=== PATIENT | female | born 1960 | race Caucasian/White ===

== ENCOUNTER 2017-01-11 16:08 | Emergency (ER) | payer BC, OTHER ==
[2017-01-11] MEDS ORDERED: Hydromorphone 1 mg/ml Ampule IV ONE (16:27)
[2017-01-11] MEDS ORDERED: Phenergan 25 MG INJ IV ONE (16:27)
[2017-01-11] MEDS ORDERED: Pepcid 20 MG VIAL IV ONE ×2 (16:27→16:35)
[2017-01-11] MEDS ORDERED: Sodium Chloride 0.9% 1000 ML 1,000 ML IV SCH (16:30)
[2017-01-11] MEDS ORDERED: Phenergan 25 MG INJ ONE (16:35)
[2017-01-11] MEDS ORDERED: Hydromorphone 1 mg/ml Ampule ONE (16:35)
[2017-01-11] MEDS ORDERED: Sodium Chloride 0.9% 1000 ML 1,000 ML ONE ×3 (16:35→17:41)
--- NOTE | 2017-01-11 16:37 | ERPHSYRPT ---
- History of Present Illness Time Seen by Provider: 01/11/17 16:11 Historian: patient Exam Limitations: no limitations Patient Subjective Stated Complaint: PT REPORTS DIARRHEA ET NAUSEA FOR DEISY 2 WKS -DENIES OBVIOUS BLOOD-REPORTS ABD PAIN-STATES THAT SHE FEELS WEAK ET DIZZY Triage Nursing Assessment: PT PINK WARM ET SEB-OQIMO-SMEF NONLABORED-ABD SOFT ET NONTENDER-BOWEL SOUNDS HYPERACTIVE Physician History: hx of diverticulitis and chrons; recent increase in abdominal pain wiht N&V &D; no blood; symptoms increased; 10# wt loss past week; cant eat;no travel; no bad food; no fever;no known exposures Timing/Duration: today (worse), week(s) (increased symptoms) Activities at Onset: none Quality: aching, cramping Abdominal Pain Onset Location: generalized abdomen Pain Radiation: no radiation Severity of Pain-Max: severe Severity of Pain-Current: moderate Modifying Factors: Improves With: eating, vomiting Associated Symptoms: diarrhea, loss of appetite, nausea, vomiting, other (wt loss) Previous symptoms: same symptoms as today, no recent treatment Allergies/Adverse Reactions: codeine Allergy (Intermediate, Verified 01/11/17 16:18) morphine Allergy (Intermediate, Verified 01/11/17 16:18) povidone-iodine [From Betadine] Allergy (Intermediate, Verified 01/11/17 16:18) soap [From Betadine] Allergy (Intermediate, Verified 01/11/17 16:18) adhesive Adverse Reaction (Verified 01/11/17 16:18) Home Medications: Prednisone 20 mg [Deltasone 20 mg] 20 mg PO DAILY 08/07/14 [History] Tramadol HCl 50 mg [Ultram 50 mg] 50 mg PO Q6HPRN PRN 08/07/14 [History] Estrogen,Liss/Me-Testosterone [Estratest Tablet] 1 mg PO DAILY 01/10/15 [ History] Fentanyl 25Mcg Patch [Duragesic 25MCG Patch] 25 mcg TD UD 09/22/15 [ History] Leflunomide [Arava] 50 mg PO DAILY 09/22/15 [History] Lisinopril 5 mg [Zestril 5 MG] 5 mg PO DAILY 09/22/15 [History] Metoprolol Succinate 25 mg Xl* [Toprol-Xl 25MG Tablets] 25 mg PO BID [History] Gabapentin [Neurontin] 300 mg PO UD 01/11/17 [History] Hx Tetanus, Diphtheria Vaccination/Date Given: No Hx Influenza Vaccination/Date Given: No Hx Pneumococcal Vaccination/Date Given: Yes Immunizations Up to Date: Yes - Review of Systems Constitutional: Weight Loss, No Fever, No Night Sweats Eyes: No Symptoms Ears, Nose, & Throat: No Symptoms Respiratory: No Cough, No Dyspnea, No Wheezing Cardiac: Edema, No Chest Pain, No Palpitations, No Syncope Abdominal/Gastrointestinal: Abdominal Pain, Nausea, Vomiting, Diarrhea, No Constipation, No Hematemesis, No Melena Genitourinary Symptoms: No Symptoms Musculoskeletal: Arthralgias, Myalgias Skin: No Symptoms Neurological: No Symptoms Psychological: No Symptoms Endocrine: No Symptoms Hematologic/Lymphatic: No Symptoms Immunological/Allergic: Food Allergy, Mold Allergy, Pollen Allergy - Past Medical History Pertinent Past Medical History: Yes Neurological History: Stroke ENT History: Cataracts Cardiac History: Congestive Heart Failure, Coronary Artery Disease, Other Respiratory History: Asthma, COPD, Pneumonia Endocrine Medical History: Diabetes Type I Musculoskeletal History: Fibromyalgia, Other GI Medical History: Crohns Disease, Diverticulosis History: No Pertinent History Psycho-Social History: No Pertinent History Female Reproductive Disorders: No Pertinent History Other Medical History: tachicardia, mixed connective tissue disease. - Past Surgical History Past Surgical History: Yes Neuro Surgical History: No Pertinent History Cardiac: Cardiac Catheterization Respiratory: No Pertinent History Gastrointestinal: Appendectomy, Cholecystectomy, Other Genitourinary: No Pertinent History Musculoskeletal: Other Female Surgical History: Hysterectomy, Lumpectomy Other Surgical History: bev fundoplasty, knee scopes. rods in spine. SI fused. left breast lumpectomy - Social History Smoking Status: Never smoker Exposure to second hand smoke: No Alcohol Use: Socially Drug Use: none Patient Lives Alone: No Significant Family History: no pertinent family hx - Female History Hx Now: No - Nursing Vital Signs Nursing Vital Signs: Initial Vital Signs Temperature 98.3 F 01/11/17 16:13 Pulse Rate 114 H 01/11/17 16:13 Respiratory Rate 20 01/11/17 16:13 Blood Pressure 164/110 01/11/17 16:13 O2 Sat by Pulse Oximetry 95 01/11/17 16:13 Pain Scale Pain Intensity 6 - Physical Exam General Appearance: moderate distress, alert, obese Eye Exam: PERRL/EOMI, eyes nml inspection, No photophobia Ears, Nose, Throat Exam: normal ENT inspection, TMs normal, pharynx normal, moist mucous membranes Neck Exam: normal inspection, non-tender, supple, full range of motion, No meningismus, No JVD Respiratory Exam: normal breath sounds, lungs clear, airway intact, No chest tenderness, No respiratory distress, No rhonchi, No wheezing Cardiovascular Exam: regular rate/rhythm, normal heart sounds, normal peripheral pulses, tachycardia, No murmur Gastrointestinal/Abdomen Exam: soft, tenderness (mild diffuse), distention ( softly), No normal bowel sounds (slightlyhyperactive), No mass, No guarding, No pulsatile mass, No rebound, No organomegaly Pelvic Exam: deferred Rectal Exam: deferred Back Exam: normal inspection, normal range of motion, No CVA tenderness, No vertebral tenderness, No rash Extremity Exam: normal inspection (except swelling right lower - chronic), normal range of motion, No calf tenderness, No kori's sign Neurologic Exam: alert, oriented x 3, cooperative, implementation engineer II-XII nml as tested, normal mood/affect, nml cerebellar function, nml station & gait, sensation nml Skin Exam: normal color, warm, dry, No rash, No petechiae SpO2 Interpretation: normal SpO2: 95 Oxygen Delivery: Room Air - Course Nursing assessment & vital signs reviewed: Yes - CT Exams Abdomen/Pelvis CT Interpretation: Tele-radiologist Report, Other (diverticulosis and surgical hardware; no obstruction ) Ordered Tests: Active Orders 24 hr Category Date Time Status IV Insertion STAT Care 01/11/17 16:27 Active NPO (ED) STAT Care 01/11/17 16:27 Active Re-Check Vital Signs STAT Care 01/11/17 16:27 Active ABDOMEN AND PELVIS W CONTRAST [CT] Stat Exams 01/11/17 16:27 Taken AMYLASE Stat Lab 01/11/17 16:41 Completed CBC W DIFF Stat Lab 01/11/17 16:41 Completed CMP Stat Lab 01/11/17 16:41 Completed LIPASE Stat Lab 01/11/17 16:41 Completed Lactic Acid Stat Lab 01/11/17 16:27 Results Manual Differential NC Stat Lab 01/11/17 16:41 Completed PROTIME WITH INR Stat Lab 01/11/17 17:31 Completed UA W/RFX UR CULTURE Stat Lab 01/11/17 16:27 Ordered Medication Summary Generic Name Dose Route Start Last Admin Trade Name Elizabeth PRN Reason Stop Dose Admin Sodium Chloride 1,000 mls @ 100 mls/hr 01/11/17 16:30 01/11/17 16:47 Sodium Chloride 0.9% 1000 Ml IV 02/10/17 16:29 100 mls/hr .Q10H ZEENAT Administration Lactated Ringer's 1,000 mls @ 999 mls/hr 01/11/17 17:28 01/11/17 17:42 Lactated Ringers IV 01/11/17 18:28 999 mls/hr .Q1H1M ONE Administration Metronidazole 500 mg in 100 mls @ 100 mls/hr 01/11/17 18:00 01/11/17 18:11 Flagyl 500 Mg Ivpb IV 01/11/17 18:59 100 mls/hr STAT ONE Administration Discontinued Medications Generic Name Dose Route Start Last Admin Trade Name Elizabeth PRN Reason Stop Dose Admin Famotidine 20 mg 01/11/17 16:27 01/11/17 16:46 Pepcid 20 Mg Vial IV 01/11/17 16:28 20 mg STAT ONE Administration Famotidine Confirm 01/11/17 16:35 Pepcid 20 Mg Vial Administered 01/11/17 16:36 Dose 20 mg IV .STK-MED ONE Hydromorphone HCl 1 mg 01/11/17 16:27 01/11/17 16:46 Hydromorphone 1 Mg/Ml Ampule IV 01/11/17 16:28 1 mg STAT ONE Administration Hydromorphone HCl Confirm 01/11/17 16:35 Hydromorphone 1 Mg/Ml Ampule Administered 01/11/17 16:36 Dose 1 mg .ROUTE .STK-MED ONE Sodium Chloride 1,000 mls @ 999 mls/hr 01/11/17 17:03 01/11/17 17:42 Sodium Chloride 0.9% 1000 Ml IV 01/11/17 18:03 999 mls/hr .Q1H1M STA Administration Sodium Chloride 500 mls @ 500 mls/hr 01/11/17 17:04 01/11/17 17:42 Sodium Chloride 0.9% 500 Ml IV 01/11/17 18:03 500 mls/hr .Q1H ONE Administration Lactated Ringer's Confirm 01/11/17 17:39 Lactated Ringers Administered 01/11/17 17:40 Dose 1,000 mls @ ud IV .STK-MED ONE Lactated Ringer's Confirm 01/11/17 17:41 Lactated Ringers Administered 01/11/17 17:42 Dose 1,000 mls @ ud IV .STK-MED ONE Ceftriaxone Sodium/Dextrose 1 g in 50 mls @ 100 mls/hr 01/11/17 17:51 18:11 Rocephin 1 Gm-D5w 50 Ml Bag IV 01/11/17 18:20 100 mls/hr STAT ONE Administration Ceftriaxone Sodium/Dextrose Confirm 01/11/17 17:55 Rocephin 1 Gm-D5w 50 Ml Bag Administered 01/11/17 17:56 Dose 1 g in 50 mls @ ud IV .STK-MED ONE Metronidazole Confirm 01/11/17 17:55 Flagyl 500 Mg Ivpb Administered 01/11/17 17:56 Dose 500 mg in 100 mls @ ud IV .STK-MED ONE Promethazine HCl 12.5 mg 01/11/17 16:27 01/11/17 16:47 Phenergan 25 Mg Inj IV 01/11/17 16:28 12.5 mg STAT ONE Administration Promethazine HCl Confirm 01/11/17 16:35 Phenergan 25 Mg Inj Administered 01/11/17 16:36 Dose 25 mg .ROUTE .STK-MED ONE Lab/Rad Data: Laboratory Result Diagrams 01/11/17 16:41 01/11/17 16:41 Laboratory Results 01/11/17 01/11/17 01/11/17 Range/Units 17:31 16:41 16:41 WBC 16.7 H (4.0-10.5) K/mm3 RBC 4.91 (4.1-5.4) M/mm3 Hgb 15.0 (12.0-16.0) gm/dl Hct 44.3 (35-47) % MCV 90.2 (78-100) fl MCH 30.5 (26-32) pg MCHC 33.9 (32-36) g/dl RDW 13.8 (11.5-14.0) % Plt Count 295 (150-450) K/mm3 MPV 11.7 H (6-9.5) fl INR 1.04 (0.8-3.0) Sodium 139 (136-145) mEq/L Potassium 2.5 L* (3.5-5.1) mEq/L Chloride 96 L (98-107) mEq/L Carbon Dioxide 28.0 (21-32) mEq/L Anion Gap 17.3 H (5-15) MEQ/L BUN 26 H (9-20) mg/dL Creatinine 1.47 H (0.55-1.30) mg/dl Estimated GFR 39 ML/MIN Glucose 203 H (70-110) MG/DL Lactic Acid (0.4-2.0) Calcium 9.7 (8.5-10.1) mg/dL Total Bilirubin 0.60 (0.2-1.0) mg/dL AST 21 (15-37) U/L ALT 33 (12-78) U/L Alkaline Phosphatase 95 (46-116) U/L Serum Total Protein 7.6 (6.4-8.2) gm/dL Albumin 4.4 (3.4-5.0) g/dL Amylase 52 (25-115) U/L Lipase 237 (73-393) U/L 01/11/17 Range/Units 16:27 WBC (4.0-10.5) K/mm3 RBC (4.1-5.4) M/mm3 Hgb (12.0-16.0) gm/dl Hct (35-47) % MCV (78-100) fl MCH (26-32) pg MCHC (32-36) g/dl RDW (11.5-14.0) % Plt Count (150-450) K/mm3 MPV (6-9.5) fl INR (0.8-3.0) Sodium (136-145) mEq/L Potassium (3.5-5.1) mEq/L Chloride (98-107) mEq/L Carbon Dioxide (21-32) mEq/L Anion Gap (5-15) MEQ/L BUN (9-20) mg/dL Creatinine (0.55-1.30) mg/dl Estimated GFR ML/MIN Glucose (70-110) MG/DL Lactic Acid 3.9 H (0.4-2.0) Calcium (8.5-10.1) mg/dL Total Bilirubin (0.2-1.0) mg/dL AST (15-37) U/L ALT (12-78) U/L Alkaline Phosphatase (46-116) U/L Serum Total Protein (6.4-8.2) gm/dL Albumin (3.4-5.0) g/dL Amylase (25-115) U/L Lipase (73-393) U/L reviewed - Progress Progress: improved, re-examined (after meds and xr; ) Progress Note: 01/11/17 16:36 IV started for hydration; meds given for N&V; labs and CT pending; will monitor and recheck 01/11/17 16:53 questioned patient about iodine allergy and states she can take contrast but cant do topical 01/11/17 17:05 lactate elevated = 3.9; will start fluid bolus. monitor and recheck 01/11/17 17:27 elevated WBC adn glu and poor renal function; low K++ 2.5elevated anion gap; will give fluids and K+ and recheck 01/11/17 17:53 Will start IV ATBS for Sepsis and continue IV bolus and recheck; CT pending results; discussed admission and transfer with the patient ; wants to go to [facility] 01/11/17 18:00 recheck; vs improving; bolusing fluids cautiously becasue of hx of cHF and ASHD in the past; tolerating fluids so far; awaiting CT result before arranging transfer 01/11/17 18:04 patient up to bathroom; INR 1.04; ptt 11.7 01/11/17 18:09 Will consult Hospitalist at [facility] xcovering admissions for Dr Mcgill for [facility]; 01/11/17 18:24 Dr Mcclain, Hospitalist at [facility] consulted and accepted the patient for transfer at 1815; patient notified; EMS contacted for transfer when bed given; will start Levoquin if time Discussed with : Other (Dr Mcclain, Hospitalist consulted and accepted patient for transfer at 1815) Counseled pt/family regarding: lab results, diagnosis, need for follow-up, rad results - Departure Time of Disposition: 18:45 Departure Disposition: Transfer (to [facility], Dr Mcclain, Hospitalist asccepting 1814) Clinical Impression: Abdominal pain, Nausea and vomiting in adult patient, Hypokalemic alkalosis, Elevated lactic acid level, Sepsis, Hyperglycemia Condition: Serious Critical Care Time: Yes Critical Care Time(excluding separately billable procedures): 30-74 minutes Referrals: PAULETTE SALAZAR [Primary Care Provider] -
[2017-01-11 16:48] LABS: Mean Cell Volume 90.2 fl (78-100); Mean Corpuscular Hemoglobin 30.5 pg (26-32); Mean Platelet Volume 11.7 fl (6-9.5); Platelet Count 295 K/mm3 (150-450); Red Blood Count 4.91 M/mm3 (4.1-5.4); Red Cell Distribution Width 13.8 % (11.5-14.0); White Blood Count 16.7 K/mm3 (4.0-10.5)
[2017-01-11 16:55] LABS: Lactic Acid 3.9 (0.4-2.0)
[2017-01-11] MEDS ORDERED: Sodium Chloride 0.9% 1000 ML 1,000 ML IV STA (17:03)
[2017-01-11] MEDS ORDERED: Sodium Chloride 0.9% 500 ML 500 ML IV ONE (17:04)
[2017-01-11 17:17] LABS: ALBUMIN 4.4 g/dL (3.4-5.0); ANION GAP 17.3 MEQ/L (5-15); BILIRUBIN,TOTAL 0.6 mg/dL (0.2-1.0); Total Protein 7.6 gm/dL (6.4-8.2)
[2017-01-11 17:24] LABS: Potassium 2.5 mEq/L (3.5-5.1)
[2017-01-11] MEDS ORDERED: Lactated Ringers 1,000 ML IV ONE ×3 (17:28→17:41)
[2017-01-11] MEDS ORDERED: ROCEPHIN 1 Gm-D5w 50 ml Bag** 1 G/50 ML IVPB IV ONE ×2 (17:51→17:55)
[2017-01-11] MEDS ORDERED: FLAGYL 500 MG IVPB 500 MG/100 ML BAG IV ONE ×2 (17:55→18:00)
[2017-01-11 17:56] LABS: INR 1.04 (0.8-3.0); PROTIME 11.7 SECONDS (9.95-12.35)
[2017-01-11] MEDS ORDERED: Levofloxacin 500MG/100ML D5W 500 MG/100 ML BAG IV STA (18:27)
[2017-01-11 18:35] LABS: Collection Type CCMS
[2017-01-11 18:36] LABS: ADD URINE CULTURE? YES (NO); Bacteria RARE /HPF (NEGATIVE); Bilirubin NEGATIVE (NEGATIVE); Blood TRACE NON-HEM Ery/ul (0-5); COMPLETE URINE MICROSCOPIC? YES; Epithelial Cells FEW /HPF (FEW); Glucose 100 mg/dL (NEGATIVE); Leukocyte Esterase TRACE (NEGATIVE); Mucus SLIGHT /HPF (NEGATIVE)
[2017-01-11 18:40] VITALS: BP 106/68
[2017-01-11] MEDS ORDERED: Levofloxacin 500MG/100ML D5W 500 MG/100 ML BAG IV ONE (18:41)
[2017-01-11 19:06] LABS: Platelet Estimate NORMAL (NORMAL); Total Cells Counted 100
[2017-01-11 19:20] VITALS: PULSE 104; O2SAT 97
--- NOTE | 2017-01-12 08:34 | XRAY ---
Indication: Mid to lower abdominal pain. Nausea. Dry heaves. Multiple contiguous axial images obtained through the abdomen and pelvis using 80 cc Isovue 370 contrast only. Comparison: None Lung bases are clear. Heart is not enlarged. Small hiatal hernia and a few calcified nodes at the GE junction. Noncontrasted stomach and bowel loops appear nonobstructed. Mild scattered colonic diverticulosis without diverticulitis. Previous cholecystectomy, hysterectomy, and reported appendectomy. No free fluid/air. Multiple pelvic phleboliths. Remaining liver, pancreas, spleen, adrenal glands, kidneys, ureters, bladder, and aorta appear unremarkable. No pathologic retroperitoneal lymphadenopathy. Osseous structures demonstrates moderate degenerative changes throughout the spine, mild remote appearing L2 superior endplate fracture, and lumbosacral postsurgical changes with fixation hardware producing beam artifact. Impression: 1. Small hiatal hernia and colonic diverticulosis. 2. No acute intra-abdominal/pelvic abnormalities. CT DI 28.11
== END 2017-01-11 19:47 | disposition short-term general hospital (02) ==
LOC: ED 16:08
DX: R10.9 Unspecified abdominal pain (principal); R11.2 Nausea with vomiting, unspecified; E87.6 Hypokalemia; E87.3 Alkalosis; R74.0 Nonspecific elevation of levels of transaminase and lactic acid dehydrogenase [LDH]; A41.9 Sepsis, unspecified organism; R73.9 Hyperglycemia, unspecified; I50.9 Heart failure, unspecified; I25.10 Atherosclerotic heart disease of native coronary artery without angina pectoris; R19.7 Diarrhea, unspecified
CPT/HCPCS: 36000; 36415; 74177; 80053; 81000; 82150; 83605; 83690; 85025; 85610; 87086; 93005; 96360; 96361; 96365; 96367; 96374; 96375; 99285; J0696; J1170; J1956; J2550

== ENCOUNTER 2017-02-11 16:33 | Emergency (ER) | payer OTHER ==
[2017-02-11 17:55] LABS: VBG BASE EXCESS 8.2 (-2.0-2.0); VBG CARBOXYHEMOGLOBIN 2.9 % T HGB (0.0-6.9); VBG HCO3- 29.5 meq/L (22-28); VBG HEMOGLOBIN 13.6; VBG O2 SATURATION 49.3 (95-100); VBG POTASSIUM 3.2 (3.5-5.1); VBG pH 7.6 (7.32-7.42)
[2017-02-11 18:01] LABS: Mean Cell Volume 92.6 fl (78-100); Mean Platelet Volume 11.5 fl (6-9.5); Platelet Count 214 K/mm3 (150-450); Red Blood Count 4.33 M/mm3 (4.1-5.4); Red Cell Distribution Width 14.1 % (11.5-14.0); White Blood Count 11.5 K/mm3 (4.0-10.5)
[2017-02-11 18:01] LABS: Lactic Acid 4.5 (0.4-2.0)
[2017-02-11] MEDS ORDERED: ATARAX 25 MG PO ONE (18:03)
[2017-02-11] MEDS ORDERED: DUONEB 0.5-3 MG/3 ml Neb IH ONE ×2 (18:03→18:04)
[2017-02-11] MEDS ORDERED: ATARAX 25 MG ONE (18:12)
--- NOTE | 2017-02-11 18:14 | ERPHSYRPT ---
- History of Present Illness Source: patient Patient Subjective Stated Complaint: pt states has been noticing bilateral lower leg swelling and tenderness for the past two weeks and is currently being tested for CHF studies by her family doctor. pt was at work tring to complete a health assessment when she became very sob and the pain in her swollen right lower extremity was 10 and came to the hospital Triage Nursing Assessment: alert and oriented. pink warm and dry. afebrile. short of breath. breath sounds clear but tight. unable to speak complete sentaces with out getting very sob. right lowert leg is swollen and hot to touch. pulses present bilat lower extremites. pt states she has thrush r/t auto immune disease. placed on O2 on arrival for low pulse ox Severity of Dyspnea-Max: severe Severity of Dyspnea-Current: severe Hx Tetanus, Diphtheria Vaccination/Date Given: Yes Hx Influenza Vaccination/Date Given: No Hx Pneumococcal Vaccination/Date Given: Yes Immunizations Up to Date: Yes <VIKY CARRENO - Last Filed: 02/11/17 20:08> <DUSTIN BRUNSON - Last Filed: 02/11/17 21:28> - History of Present Illness Time Seen by Provider: 02/11/17 17:44 Physician History: CC: short of breath Hx: 56 y/o patient of Dr Mae and Dr Mcginnis. She has hx of fibromylagia and connective tissue disease. She went to work today and felt more short of breath. She has 3-4 days of leg swelling which has worsened and not been better with lasix. No fever. Chronic chills. No chest pain. She had echo last week with prelim EF 80% but not formerly read. She was recently admitted to [facility] with sepsis for one week, no identified cause. She has no hx of venous thromboembolic disease. She had remote right knee replacement. Both legs are swollen. (VIKY CARRENO) Allergies/Adverse Reactions: codeine Allergy (Intermediate, Verified 02/11/17 17:52) morphine Allergy (Intermediate, Verified 02/11/17 17:52) povidone-iodine [From Betadine] Allergy (Intermediate, Verified 02/11/17 17:52) soap [From Betadine] Allergy (Intermediate, Verified 02/11/17 17:52) adhesive Adverse Reaction (Verified 02/11/17 17:52) Home Medications: Prednisone 20 mg [Deltasone 20 mg] 20 mg PO DAILY 08/07/14 [History] Tramadol HCl 50 mg [Ultram 50 mg] 50 mg PO Q6HPRN PRN 08/07/14 [History] Estrogen,Liss/Me-Testosterone [Estratest Tablet] 1 mg PO DAILY 01/10/15 [ History] Fentanyl 25Mcg Patch [Duragesic 25MCG Patch] 25 mcg TD UD 09/22/15 [ History] Leflunomide [Arava] 20 mg PO DAILY 09/22/15 [History] Lisinopril 5 mg [Zestril 5 MG] 5 mg PO DAILY 09/22/15 [History] Metoprolol Succinate 25 mg Xl* [Toprol-Xl 25MG Tablets] 25 mg PO QAM [History] Gabapentin [Neurontin] 600 mg PO TID 01/11/17 [History] Dulaglutide [Trulicity] 0.75 mg SQ WEEKLY 02/11/17 [History] - Review of Systems Constitutional: Chills, Malaise, Weakness, No Fever Eyes: No Symptoms Ears, Nose, & Throat: No Symptoms Respiratory: Dyspnea, No Cough Cardiac: Edema (both legs), No Chest Pain Abdominal/Gastrointestinal: No Abdominal Pain, No Nausea, No Vomiting Musculoskeletal: Arthralgias Skin: Rash (redness to legs) Neurological: No Headache All Other Systems: Reviewed and Negative <VIKY CARRENO - Last Filed: 02/11/17 20:08> - Past Medical History Pertinent Past Medical History: Yes Neurological History: Stroke ENT History: Cataracts Cardiac History: Congestive Heart Failure, Coronary Artery Disease, Other Respiratory History: Asthma, COPD, Pneumonia Endocrine Medical History: Diabetes Type I Musculoskeletal History: Fibromyalgia, Other GI Medical History: Crohns Disease, Diverticulosis History: No Pertinent History Psycho-Social History: No Pertinent History Female Reproductive Disorders: No Pertinent History Other Medical History: Tachycardia. Mixed connective tissue disease. RA/lupus - Past Surgical History Past Surgical History: Yes Neuro Surgical History: No Pertinent History Cardiac: Cardiac Catheterization Respiratory: No Pertinent History Gastrointestinal: Appendectomy, Cholecystectomy, Other Genitourinary: No Pertinent History Musculoskeletal: Orthopedic Surgery, Other Female Surgical History: Hysterectomy, Lumpectomy Other Surgical History: bev fundoplasty, knee scopes. rods in spine. SI fused. 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) Significant Family History: no pertinent family hx - Female History Hx Last Menstrual Period: hysterectomy Hx Now: No <VIKY CARRENO - Last Filed: 02/11/17 20:08> - Physical Exam General Appearance: alert Eye Exam: PERRL/EOMI Ears, Nose, Throat Exam: pharyngeal erythema (thrush on throat) Neck Exam: normal inspection, supple Respiratory Exam: lungs clear, other (breathing heavy, no wheezes, no rales) Cardiovascular/Chest Exam: normal heart sounds, regular rate/rhythm Abdominal/Gastrointestinal Exam: soft, No tenderness, No distention Extremity Exam: swelling (both legs with some redness, symmetric) Neurologic Exam: alert, oriented x 3, cooperative, sensation nml, No motor deficits Skin Exam: warm, dry SpO2 Interpretation: normal SpO2: 100 Oxygen Delivery: Room Air <VIKY CARRENO - Last Filed: 02/11/17 20:08> - Nursing Vital Signs Nursing Vital Signs: Initial Vital Signs Temperature 98.1 F 02/11/17 17:26 Pulse Rate 103 H 02/11/17 17:26 Respiratory Rate 22 02/11/17 17:26 Blood Pressure 108/67 02/11/17 17:26 O2 Sat by Pulse Oximetry 87 L 02/11/17 17:26 Pain Scale Pain Intensity 0 - Course Nursing assessment & vital signs reviewed: Yes EKG Interpreted by Me: RATE (98), Sinus Rhythm, NORMAL AXIS, NORMAL INTERVALS ( QTc 491- borderline long), NORMAL QRS, NORMAL ST-T - Radiology Exams cxr X-ray Interpretation: Reviewed by me, Negative <VIKY CARRENO - Last Filed: 02/11/17 20:08> - CT Exams Chest CT Interpretation: Other (No evidence PTE. Hiatal Hernia. Small amount patchy airspace disease in RUL.) <DUSTIN BRUNSON - Last Filed: 02/11/17 21:28> Ordered Tests: Active Orders 24 hr Category Date Time Status Testing Engineer STAT Care 02/11/17 17:45 Active Catheter-[place] Ricci STAT Care 02/11/17 18:03 Active EKG-ER Only STAT Care 02/11/17 17:44 Active IV Insertion STAT Care 02/11/17 17:44 Active Pulse Oximetry (ED) STAT Care 02/11/17 17:44 Active Rectal Temperature STAT Care 02/11/17 18:03 Active CHEST 1 VIEW (PORTABLE) Stat Exams 02/11/17 17:45 Taken CHEST WITH CONTRAST [CT] Stat Exams 02/11/17 18:50 Taken BLOOD CULTURE Stat Lab 02/11/17 18:35 Received CBC W DIFF Stat Lab 02/11/17 17:51 Completed CMP Stat Lab 02/11/17 17:51 Completed D-DIMER QUANTITATION Stat Lab 02/11/17 18:04 Completed Lactic Acid Stat Lab 02/11/17 17:58 Completed Lactic Acid Stat Lab 02/11/17 20:01 Ordered Lactic Acid Urgent Lab 02/11/17 19:55 Results MAGNESIUM Stat Lab 02/11/17 17:51 Completed Manual Differential NC Stat Lab 02/11/17 17:51 Completed NT PRO BNP Stat Lab 02/11/17 17:51 Completed TROPONIN Q3H Lab 02/11/17 17:45 Completed TROPONIN Q3H Lab 02/11/17 20:45 Ordered TROPONIN Q3H Lab 02/11/17 23:45 Ordered TROPONIN Q3H Lab 02/12/17 02:45 Ordered TROPONIN Q3H Lab 02/12/17 05:45 Ordered UA W/RFX UR CULTURE Stat Lab 02/11/17 19:31 Completed VENOUS BLOOD GAS Stat Lab 02/11/17 17:50 Completed VENOUS BLOOD GAS Urgent Lab 02/11/17 19:55 Completed Respiratory Nebulizer STAT RT 02/11/17 18:03 Completed Medication Summary Generic Name Dose Route Start Last Admin Trade Name Freq PRN Reason Stop Dose Admin Potassium Chloride 100 mls @ 50 mls/hr 02/11/17 20:15 02/11/17 20:10 Potassium Chloride 20 Meq In Water 100ml IV 02/12/17 00:14 50 mls/hr Q2H ZEENAT Administration Discontinued Medications Generic Name Dose Route Start Last Admin Trade Name Freq PRN Reason Stop Dose Admin Albuterol/Ipratropium 3 ml 02/11/17 18:03 02/11/17 18:06 Duoneb 0.5-3 Mg/3 Ml Neb IH 08/25/17 18:04 3 ml STAT ONE Administration Albuterol/Ipratropium Confirm 02/11/17 18:04 Duoneb 0.5-3 Mg/3 Ml Neb Administered 02/11/17 18:05 Dose 3 ml IH .STK-MED ONE Hydroxyzine HCl 25 mg 02/11/17 18:03 02/11/17 18:12 Atarax 25 Mg PO 02/11/17 18:04 25 mg STAT ONE Administration Hydroxyzine HCl Confirm 02/11/17 18:12 Atarax 25 Mg Administered 02/11/17 18:13 Dose 25 mg .ROUTE .STK-MED ONE Sodium Chloride 500 mls @ 999 mls/hr 02/11/17 20:02 02/11/17 20:10 Sodium Chloride 0.9% 1000 Ml IV 02/11/17 20:32 999 mls/hr .Q31M STA Administration Cefazolin Sodium/Dextrose 2 gm in 50 mls @ 100 mls/hr 02/11/17 20:08 Cefazolin 2 Gm-D5w Bag IV 02/11/17 20:37 STAT STA Sodium Chloride Confirm 02/11/17 20:08 Sodium Chloride 0.9% 1000 Ml Administered 02/11/17 20:09 Dose 1,000 mls @ ud .ROUTE .STK-MED ONE Lorazepam 1 mg 02/11/17 18:50 02/11/17 18:55 Ativan 2 Mg/1 Ml Vial IV 02/11/17 18:51 1 mg STAT ONE Administration Lorazepam Confirm 02/11/17 18:54 Ativan 2 Mg/1 Ml Vial Administered 02/11/17 18:55 Dose 2 mg .ROUTE .STK-MED ONE Lab/Rad Data: Laboratory Result Diagrams 02/11/17 17:51 02/11/17 17:51 Laboratory Results 02/11/17 02/11/17 02/11/17 Range/Units 19:55 19:55 19:31 WBC (4.0-10.5) K/mm3 RBC (4.1-5.4) M/mm3 Hgb (12.0-16.0) gm/dl Hct (35-47) % MCV (78-100) fl MCH (26-32) pg MCHC (32-36) g/dl RDW (11.5-14.0) % Plt Count (150-450) K/mm3 MPV (6-9.5) fl Segmented Neutrophils (36.0-66.0) % Band Neutrophils (0.0-2.0) % Lymphocytes (Manual) (24-44) % Monocytes (Manual) (0.0-12.0) % Eosinophils (Manual) (0.00-3.0) % Differential Comment Atypical Lymphocytes % Platelet Estimate (NORMAL) D-Dimer (0-500) ng/mL VBG pH 7.49 H (7.32-7.42) VBG pCO2 at Pat Temp 38 L (42-55) mm/Hg VBG pO2 at Pat Temp 33 (25-40) mm/Hg VBG HCO3 29.0 H (22-28) meq/L VBG O2 Sat (Rufino) 68.5 L (95-100) VBG Base Excess 5.4 H (-2.0-2.0) VBG Hemoglobin 13.4 VBG Carboxyhemoglobin 2.2 (0.0-6.9) % T HGB POC Potassium 2.4 L* (3.5-5.1) Sodium (136-145) mEq/L Potassium (3.5-5.1) mEq/L Chloride (98-107) mEq/L Carbon Dioxide (21-32) mEq/L Anion Gap (5-15) MEQ/L BUN (9-20) mg/dL Creatinine (0.55-1.30) mg/dl Estimated GFR ML/MIN Glucose (70-110) MG/DL Lactic Acid 3.3 H (0.4-2.0) Calcium (8.5-10.1) mg/dL Magnesium (1.8-2.4) mg/dL Total Bilirubin (0.2-1.0) mg/dL AST (15-37) U/L ALT (12-78) U/L Alkaline Phosphatase (46-116) U/L Troponin I (0.000-0.056) ng/ml NT-Pro-B Natriuret Pep (0-125) pg/ml Serum Total Protein (6.4-8.2) gm/dL Albumin (3.4-5.0) g/dL Ur Collection Type CATH Urine Color YELLOW (YELLOW) Urine Appearance CLEAR (CLEAR) Urine pH 5.0 (5-6) Ur Specific Jermyn 1.020 (1.005-1.025) Urine Protein NEGATIVE (Negative) Urine Ketones MODERATE (NEGATIVE) Urine Blood NEGATIVE (0-5) Pawel/ul Urine Nitrite NEGATIVE (NEGATIVE) Urine Bilirubin NEGATIVE (NEGATIVE) Urine Urobilinogen NORMAL (0-1) mg/dL Ur Leukocyte Esterase NEGATIVE (NEGATIVE) Urine Glucose 1000 (NEGATIVE) mg/dL Specimen Received 02/11/17194402/11/17 02/11/17 02/11/17 Range/Units 18:04 17:58 17:51 WBC (4.0-10.5) K/mm3 RBC (4.1-5.4) M/mm3 Hgb (12.0-16.0) gm/dl Hct (35-47) % MCV (78-100) fl MCH (26-32) pg MCHC (32-36) g/dl RDW (11.5-14.0) % Plt Count (150-450) K/mm3 MPV (6-9.5) fl Segmented Neutrophils (36.0-66.0) % Band Neutrophils (0.0-2.0) % Lymphocytes (Manual) (24-44) % Monocytes (Manual) (0.0-12.0) % Eosinophils (Manual) (0.00-3.0) % Differential Comment Atypical Lymphocytes % Platelet Estimate (NORMAL) D-Dimer 1934 H* (0-500) ng/mL VBG pH (7.32-7.42) VBG pCO2 at Pat Temp (42-55) mm/Hg VBG pO2 at Pat Temp (25-40) mm/Hg VBG HCO3 (22-28) meq/L VBG O2 Sat (Rufino) (95-100) VBG Base Excess (-2.0-2.0) VBG Hemoglobin VBG Carboxyhemoglobin (0.0-6.9) % T HGB POC Potassium (3.5-5.1) Sodium (136-145) mEq/L Potassium (3.5-5.1) mEq/L Chloride (98-107) mEq/L Carbon Dioxide (21-32) mEq/L Anion Gap (5-15) MEQ/L BUN (9-20) mg/dL Creatinine (0.55-1.30) mg/dl Estimated GFR ML/MIN Glucose (70-110) MG/DL Lactic Acid 4.5 H (0.4-2.0) Calcium (8.5-10.1) mg/dL Magnesium 2.0 (1.8-2.4) mg/dL Total Bilirubin (0.2-1.0) mg/dL AST (15-37) U/L ALT (12-78) U/L Alkaline Phosphatase (46-116) U/L Troponin I (0.000-0.056) ng/ml NT-Pro-B Natriuret Pep (0-125) pg/ml Serum Total Protein (6.4-8.2) gm/dL Albumin (3.4-5.0) g/dL Ur Collection Type Urine Color (YELLOW) Urine Appearance (CLEAR) Urine pH (5-6) Ur Specific Jermyn (1.005-1.025) Urine Protein (Negative) Urine Ketones (NEGATIVE) Urine Blood (0-5) Pawel/ul Urine Nitrite (NEGATIVE) Urine Bilirubin (NEGATIVE) Urine Urobilinogen (0-1) mg/dL Ur Leukocyte Esterase (NEGATIVE) Urine Glucose (NEGATIVE) mg/dL Specimen Received 02/11/17 02/11/17 02/11/17 Range/Units 17:51 17:51 17:50 WBC 11.5 H (4.0-10.5) K/mm3 RBC 4.33 (4.1-5.4) M/mm3 Hgb 13.0 (12.0-16.0) gm/dl Hct 40.1 (35-47) % MCV 92.6 (78-100) fl MCH 30.0 (26-32) pg MCHC 32.4 (32-36) g/dl RDW 14.1 H (11.5-14.0) % Plt Count 214 (150-450) K/mm3 MPV 11.5 H (6-9.5) fl Segmented Neutrophils 72 H (36.0-66.0) % Band Neutrophils 3 H (0.0-2.0) % Lymphocytes (Manual) 15 L (24-44) % Monocytes (Manual) 2 (0.0-12.0) % Eosinophils (Manual) 5 H (0.00-3.0) % Differential Comment NORMAL Atypical Lymphocytes 3 % Platelet Estimate NORMAL (NORMAL) D-Dimer (0-500) ng/mL VBG pH 7.60 H* (7.32-7.42) VBG pCO2 at Pat Temp 30 L (42-55) mm/Hg VBG pO2 at Pat Temp 21 L (25-40) mm/Hg VBG HCO3 29.5 H* (22-28) meq/L VBG O2 Sat (Rufino) 49.3 L (95-100) VBG Base Excess 8.2 H (-2.0-2.0) VBG Hemoglobin 13.6 VBG Carboxyhemoglobin 2.9 (0.0-6.9) % T HGB POC Potassium 3.2 L (3.5-5.1) Sodium 137 (136-145) mEq/L Potassium 3.2 L (3.5-5.1) mEq/L Chloride 98 (98-107) mEq/L Carbon Dioxide 26.7 (21-32) mEq/L Anion Gap 15.8 H (5-15) MEQ/L BUN 19 (9-20) mg/dL Creatinine 1.14 (0.55-1.30) mg/dl Estimated GFR 53 ML/MIN Glucose 260 H (70-110) MG/DL Lactic Acid (0.4-2.0) Calcium 9.3 (8.5-10.1) mg/dL Magnesium (1.8-2.4) mg/dL Total Bilirubin 0.70 (0.2-1.0) mg/dL AST 73 H (15-37) U/L ALT 108 H (12-78) U/L Alkaline Phosphatase 171 H (46-116) U/L Troponin I (0.000-0.056) ng/ml NT-Pro-B Natriuret Pep 49 (0-125) pg/ml Serum Total Protein 6.9 (6.4-8.2) gm/dL Albumin 3.5 (3.4-5.0) g/dL Ur Collection Type Urine Color (YELLOW) Urine Appearance (CLEAR) Urine pH (5-6) Ur Specific Jermyn (1.005-1.025) Urine Protein (Negative) Urine Ketones (NEGATIVE) Urine Blood (0-5) Pawel/ul Urine Nitrite (NEGATIVE) Urine Bilirubin (NEGATIVE) Urine Urobilinogen (0-1) mg/dL Ur Leukocyte Esterase (NEGATIVE) Urine Glucose (NEGATIVE) mg/dL Specimen Received 02/11/17 Range/Units 17:45 WBC (4.0-10.5) K/mm3 RBC (4.1-5.4) M/mm3 Hgb (12.0-16.0) gm/dl Hct (35-47) % MCV (78-100) fl MCH (26-32) pg MCHC (32-36) g/dl RDW (11.5-14.0) % Plt Count (150-450) K/mm3 MPV (6-9.5) fl Segmented Neutrophils (36.0-66.0) % Band Neutrophils (0.0-2.0) % Lymphocytes (Manual) (24-44) % Monocytes (Manual) (0.0-12.0) % Eosinophils (Manual) (0.00-3.0) % Differential Comment Atypical Lymphocytes % Platelet Estimate (NORMAL) D-Dimer (0-500) ng/mL VBG pH (7.32-7.42) VBG pCO2 at Pat Temp (42-55) mm/Hg VBG pO2 at Pat Temp (25-40) mm/Hg VBG HCO3 (22-28) meq/L VBG O2 Sat (Rufino) (95-100) VBG Base Excess (-2.0-2.0) VBG Hemoglobin VBG Carboxyhemoglobin (0.0-6.9) % T HGB POC Potassium (3.5-5.1) Sodium (136-145) mEq/L Potassium (3.5-5.1) mEq/L Chloride (98-107) mEq/L Carbon Dioxide (21-32) mEq/L Anion Gap (5-15) MEQ/L BUN (9-20) mg/dL Creatinine (0.55-1.30) mg/dl Estimated GFR ML/MIN Glucose (70-110) MG/DL Lactic Acid (0.4-2.0) Calcium (8.5-10.1) mg/dL Magnesium (1.8-2.4) mg/dL Total Bilirubin (0.2-1.0) mg/dL AST (15-37) U/L ALT (12-78) U/L Alkaline Phosphatase (46-116) U/L Troponin I < 0.017 (0.000-0.056) ng/ml NT-Pro-B Natriuret Pep (0-125) pg/ml Serum Total Protein (6.4-8.2) gm/dL Albumin (3.4-5.0) g/dL Ur Collection Type Urine Color (YELLOW) Urine Appearance (CLEAR) Urine pH (5-6) Ur Specific Jermyn (1.005-1.025) Urine Protein (Negative) Urine Ketones (NEGATIVE) Urine Blood (0-5) Pawel/ul Urine Nitrite (NEGATIVE) Urine Bilirubin (NEGATIVE) Urine Urobilinogen (0-1) mg/dL Ur Leukocyte Esterase (NEGATIVE) Urine Glucose (NEGATIVE) mg/dL Specimen Received - Progress Counseled pt/family regarding: lab results, diagnosis, need for follow-up, rad results <VIKY CARRENO - Last Filed: 02/11/17 20:08> - Progress Progress: improved Air Movement: good Blood Culture(s) Obtained: Yes Antibiotics given: Yes Discussed with Dr.: Salomon (recommends transfer to [facility] since her attending is there.) <DUSTIN BRUNSON - Last Filed: 02/11/17 21:28> - Progress Progress Note: 02/11/17 18:51 She was given neb and vistaril tab. D-dimer elevated. She has hyperventilation on VBG. RA saturation 100%. She feels breathless. Will get CTA lungs to ule out PE. She understands risks. Will get CTA. She agrees for ativan. 02/11/17 20:09 Pt much improved. Breathing easier. VBG now without hyperventilation. CTA chest pending. K lower so will given IVF and K rider. She has some redness in legs, mostly venous stasis. Does not appears to be sepsis. LArge volume IVF not given as no fever, no focal source of infection, and sepsis not suspected. Report to Dr Brunson for further care and disposition. (VIKY CARRENO) 02/11/17 21:16 Dr. Salomon notified and recommends referral to [facility] , where her PCP attends. Dr. Alford notified at [facility] and accepts in transfer. Requests Insulin drip per protocol and D5NS at 250/hr, since her BG is 260. We will also turn her Insulin pump off. He also recommends Vancomycin and Zosyn IV for HCAP. (DUSTIN BRUNSON) <VIKY CARRENO - Last Filed: 02/11/17 20:08> - Departure Time of Disposition: 21:15 Departure Disposition: Transfer Critical Care Time: Yes Critical Care Time(excluding separately billable procedures): 30-74 minutes ( Insulin drip for DKA. Arrangements for ICU transfer.) <DUSTIN BRUNSON - Last Filed: 02/11/17 21:28> - Departure Clinical Impression: Hypokalemic alkalosis, Elevated lactic acid level, Hyperglycemia Pneumonia Qualifiers: Pneumonia type: due to unspecified organism Laterality: right Lung location: upper lobe of lung Qualified Code(s): J18.1 - Lobar pneumonia, unspecified organism DKA (diabetic ketoacidoses) Qualifiers: Diabetes mellitus type: type 1 Diabetes mellitus complication detail: without coma Qualified Code(s): E10.10 - Type 1 diabetes mellitus with ketoacidosis without coma Condition: Stable Referrals: PAULETTE SALAZAR [Primary Care Provider] -
[2017-02-11 18:33] LABS: ALBUMIN 3.5 g/dL (3.4-5.0); ANION GAP 15.8 MEQ/L (5-15); BILIRUBIN,TOTAL 0.7 mg/dL (0.2-1.0); Carbon Dioxide 26.7 mEq/L (21-32); Potassium 3.2 mEq/L (3.5-5.1); Total Protein 6.9 gm/dL (6.4-8.2)
[2017-02-11] MEDS ORDERED: Ativan 2 MG/1 ML VIAL IV ONE (18:50)
[2017-02-11 18:52] LABS: ATYPICAL LYMPHS 3 %; BAND 3 % (0.0-2.0); Eosinophil 5 % (0.00-3.0); Total Cells Counted 100
[2017-02-11 18:54] LABS: Platelet Estimate NORMAL (NORMAL)
[2017-02-11] MEDS ORDERED: Ativan 2 MG/1 ML VIAL ONE (18:54)
[2017-02-11 19:43] LABS: ADD URINE CULTURE? NO (NO); Bilirubin NEGATIVE (NEGATIVE); Blood NEGATIVE Ery/ul (0-5); COMPLETE URINE MICROSCOPIC? NO; Collection Type CATH; Glucose 1000 mg/dL (NEGATIVE); Leukocyte Esterase NEGATIVE (NEGATIVE)
[2017-02-11 19:59] LABS: Lactic Acid 3.3 (0.4-2.0)
[2017-02-11 20:01] LABS: VBG BASE EXCESS 5.4 (-2.0-2.0); VBG CARBOXYHEMOGLOBIN 2.2 % T HGB (0.0-6.9); VBG HEMOGLOBIN 13.4; VBG O2 SATURATION 68.5 (95-100); VBG POTASSIUM 2.4 (3.5-5.1); VBG pH 7.49 (7.32-7.42)
[2017-02-11] MEDS ORDERED: POTASSIUM CHLORIDE 20 mEq IN WATER 100ML 100 ML IV ONE (20:08)
[2017-02-11] MEDS ORDERED: CEFAZOLIN 2 GM-D5W BAG** 2 GM/50 ML ML IV STA (20:08)
[2017-02-11] MEDS ORDERED: Sodium Chloride 0.9% 1000 ML 1,000 ML ONE (20:08)
[2017-02-11] MEDS ORDERED: POTASSIUM CHLORIDE 20 mEq IN WATER 100ML 100 ML IV SCH (20:15)
[2017-02-11 21:56] VITALS: O2SAT 98
[2017-02-11 22:15] VITALS: BP 125/58; PULSE 105
--- NOTE | 2017-02-11 23:01 | XRAY ---
Indication: Short of breath. Elevated d-dimer. Leg swelling. Multiple contiguous axial images obtained through the chest using 80 cc Isovue 370 contrast and PE protocol. Comparison: None There is adequate opacification of the pulmonary arteries limiting evaluation of the lobar and segmental branches. No filling defect or pulmonary embolus. Heart is not enlarged. Aorta is normal in course and caliber. No pathologic mediastinal/hilar lymphadenopathy. Small hiatal hernia. Examination of the lung parenchyma demonstrates very minimal bilateral dependent atelectasis. Tiny focus of right upper lobe airspace opacity. Elsewhere no suspicious pulmonary mass, infiltrate, consolidation, or effusion. Bony thorax intact with mild degenerative changes throughout the spine. Limited upper abdomen unremarkable. Incidental cholecystectomy clips. Impression: 1. Negative for pulmonary embolus. 2. Small focus of right upper lobe airspace disease. Correlate clinically. 3. Small hiatal hernia. Comment: Preliminary interpretation was made by [facility]. No discrepancy. CTDI 23.54
--- NOTE | 2017-02-11 23:02 | XRAY ---
Indication: Short of breath. Bilateral leg swelling. Comparison: January 28, 2017. Portable chest remains clear. Heart and mediastinal structures within normal limits. No new/acute findings.
== END 2017-02-11 22:15 | disposition short-term general hospital (02) ==
LOC: ED 16:33
DX: J18.1 Lobar pneumonia, unspecified organism (principal); E10.10 Type 1 diabetes mellitus with ketoacidosis without coma; E87.6 Hypokalemia; E87.3 Alkalosis; R74.0 Nonspecific elevation of levels of transaminase and lactic acid dehydrogenase [LDH]; E10.65 Type 1 diabetes mellitus with hyperglycemia; I50.9 Heart failure, unspecified; I25.10 Atherosclerotic heart disease of native coronary artery without angina pectoris
CPT/HCPCS: 36000; 36415; 51702; 71010; 71260; 80053; 81002; 82805; 82962; 83605; 83735; 83880; 84484; 85025; 85379; 87040; 93005; 93041; 94640; 96360; 96365; 96366; 96375; 99285; J0690; J2060; J3480; A9270-GY

== ENCOUNTER 2017-11-12 20:51 | Emergency (ER) | payer OTHER ==
--- NOTE | 2017-11-12 21:17 | ERPHSYRPT ---
- History of Present Illness Time Seen by Provider: 11/12/17 21:12 Source: patient, family Exam Limitations: no limitations Physician History: pt tripped over object on floor at home this am and her shoulder keep hurting - prior surg on right rotator cuff, tried to catch self and impacted both arms but only shoulders painful , has other bruises on arms all nontender- Hx RA also has seizure dx but without LOC and just started med for that; no chest or abd pain or LOC and did not strike head; has stable back pain chronic unaffected by fall and nontender on exam today. neuro intact; vasc intact distally ; bruise right knee over prior prosthesis full ROM hips without pain; Occurred: this morning Reason for Fall: tripped Injuries/Pain Location: upper extremity, lower extremity Loss of Consciousness: no loss of consciousness Quality: sharpness, throbbing Severity of Pain-Max: moderate Severity of Pain-Current: moderate Modifying Factors: Improves With: movement Associated Symptoms (Fall): extremity injury, seizures (had feeling of seizure prior to fall, which had resolved. ), No abdominal pain, No chest pain, No headache, No nausea Allergies/Adverse Reactions: codeine Allergy (Intermediate, Verified 11/12/17 21:17) morphine Allergy (Intermediate, Verified 11/12/17 21:17) povidone-iodine [From Betadine] Allergy (Intermediate, Verified 11/12/17 21:17) soap [From Betadine] Allergy (Intermediate, Verified 11/12/17 21:17) adhesive Adverse Reaction (Verified 11/12/17 21:17) Home Medications: Prednisone 20 mg [Deltasone 20 mg] 20 mg PO DAILY 08/07/14 [History] Tramadol HCl 50 mg [Ultram 50 mg] 50 mg PO Q6HPRN PRN 08/07/14 [History] Estrogen,Liss/Me-Testosterone [Estratest Tablet] 1 mg PO DAILY 01/10/15 [ History] Leflunomide [Arava] 20 mg PO DAILY 09/22/15 [History] Lisinopril 5 mg [Zestril 5 MG] 5 mg PO DAILY PRN PRN 09/22/15 [History] Metoprolol Succinate 25 mg Xl* [Toprol-Xl 25MG Tablets] 25 mg PO QAM [History] Dulaglutide [Trulicity] 0.75 mg SQ WEEKLY 02/11/17 [History] Eslicarbazepine Acetate [Aptiom] 600 mg PO DAILY 11/12/17 [History] Fluoxetine HCl 20 mg [Prozac 20 MG] 20 mg PO DAILY 11/12/17 [History] Insulin Lispro [Humalog] DAILY 11/12/17 [History] Methimazole [Tapazole] 2 tab PO DAILY 11/12/17 [History] Oxycodone HCl/Acetaminophen [Percocet 10-325 mg Tablet] 1 tab PO Q12H PRN PRN [History] Pregabalin [Lyrica 150Mg] 150 mg PO BID 11/12/17 [History] Primidone 50 MG [Mysoline 50Mg] 0.25 tab PO DAILY 11/12/17 [History] Hx Tetanus, Diphtheria Vaccination/Date Given: Yes Hx Influenza Vaccination/Date Given: No Hx Pneumococcal Vaccination/Date Given: Yes - Review of Systems Constitutional: No Fever, No Chills Eyes: No Symptoms Ears, Nose, & Throat: No Symptoms Respiratory: No Cough, No Dyspnea Cardiac: No Chest Pain, No Edema, No Syncope Abdominal/Gastrointestinal: No Abdominal Pain, No Nausea, No Vomiting, No Diarrhea Genitourinary Symptoms: No Dysuria Musculoskeletal: Back Pain (chronic without change), Fall, Injury (shoudlers and right knee), Joint Pain (shoulders), Joint Swelling (shoulders), No Neck Pain Skin: No Rash Neurological: Dizziness (has some with seizures), No Focal Weakness, No Sensory Changes Psychological: No Symptoms Endocrine: No Symptoms Hematologic/Lymphatic: No Symptoms Immunological/Allergic: No Symptoms All Other Systems: Reviewed and Negative - Past Medical History Pertinent Past Medical History: Yes Neurological History: Stroke ENT History: Cataracts Cardiac History: Congestive Heart Failure, Coronary Artery Disease, Other Respiratory History: Asthma, COPD, Pneumonia Endocrine Medical History: Diabetes Type I Musculoskeletal History: Fibromyalgia, Other GI Medical History: Crohns Disease, Diverticulosis History: No Pertinent History Psycho-Social History: No Pertinent History Female Reproductive Disorders: No Pertinent History Other Medical History: Tachycardia. Mixed connective tissue disease. RA/lupus - Past Surgical History Past Surgical History: Yes Neuro Surgical History: No Pertinent History Cardiac: Cardiac Catheterization Respiratory: No Pertinent History Gastrointestinal: Appendectomy, Cholecystectomy, Other Genitourinary: No Pertinent History Musculoskeletal: Orthopedic Surgery, Other Female Surgical History: Hysterectomy, Lumpectomy Other Surgical History: bev fundoplasty, knee scopes. rods in spine. SI fused. 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) Significant Family History: no pertinent family hx - Nursing Vital Signs Nursing Vital Signs: Initial Vital Signs Temperature 97.7 F 11/12/17 21:05 Pulse Rate 98 H 11/12/17 21:05 Respiratory Rate 18 11/12/17 21:05 Blood Pressure 144/94 11/12/17 21:05 O2 Sat by Pulse Oximetry 97 11/12/17 21:05 Pain Scale Pain Intensity 8 - Jeanie Coma Score Best Eye Response (Jeanie): (4) open spontaneously Best Verbal Response (Reading): (5) oriented Best Motor Response (Reading): (6) obeys commands Reading Total: 15 - Physical Exam General Appearance: no apparent distress, alert Head Injury: no evidence of injury Eye Exam: PERRL/EOMI ENT Exam: airway nml Neck Exam: trachea midline, full range of motion, normal alignment, normal inspection, No tenderness Respiratory/Chest Exam: normal breath sounds, No chest tenderness, No respiratory distress Cardiovascular Exam: normal heart sounds, regular rate/rhythm Gastrointestinal Exam: soft, No tenderness, No distention, No guarding, No ecchymosis Rectal Exam: deferred Back Exam: normal inspection, No vertebral tenderness Extremity Exam: normal inspection, normal range of motion, pelvis stable, tenderness (bilateral shoulders and right knee), No deformities Peripheral Pulses: carotid (R): 2+, carotid (L): 2+, femoral (R): 2+, femoral (L ): 2+, dorsalis-pedis (R): 2+, dorsalis-pedis (L): 2+ Neurologic Exam: alert, oriented x 3, cooperative, patent drafter II-XII nml as tested, normal mood/affect, nml cerebellar function, sensation nml, No motor deficits, No sensory deficit, No disoriented, No confusion, No motor weakness, No facial droop, No slurred speech Skin Exam: normal color, warm, dry - Course Nursing assessment & vital signs reviewed: Yes EKG Interpreted by Me: Sinus Rhythm, NORMAL AXIS, Non-specific ST Changes, Other (short MN) - Radiology Exams Chest X-ray Interpretation: Reviewed by me, Teleradiologist Report, No Pneumonia, Other (atelectasis on left ) Right Shoulder X-ray Interpretation: Reviewed by me, Teleradiologist Report, No Fracture, No Subluxation Right Knee X-ray Interpretation: Reviewed by me, No Fracture Ordered Tests: Active Orders 24 hr Category Date Time Status Clean Catch Urine Specimen STAT Care 11/12/17 21:22 Active EKG-ER Only STAT Care 11/12/17 21:22 Active IV Insertion STAT Care 11/12/17 21:22 Active CHEST 2 VIEWS (PA AND LAT) Stat Exams 11/12/17 21:23 Taken KNEE (3 VIEWS) Stat Exams 11/12/17 21:25 Taken SHOULDER Stat Exams 11/12/17 21:26 Taken CBC W DIFF Stat Lab 11/12/17 21:30 Completed CMP Stat Lab 11/12/17 21:30 Completed Lactic Acid Stat Lab 11/12/17 21:30 Results Manual Differential NC Stat Lab 11/12/17 21:30 Completed TROPONIN Q3H Lab 11/12/17 21:30 Completed TROPONIN Q3H Lab 11/13/17 00:30 Ordered TROPONIN Q3H Lab 11/13/17 03:30 Ordered TROPONIN Q3H Lab 11/13/17 06:30 Ordered TROPONIN Q3H Lab 11/13/17 09:30 Ordered UA W/RFX UR CULTURE Stat Lab 11/12/17 21:40 Completed Medication Summary Discontinued Medications Generic Name Dose Route Start Last Admin Trade Name Freq PRN Reason Stop Dose Admin Hydromorphone HCl 1 mg 11/12/17 21:44 11/12/17 21:55 Hydromorphone 1 Mg/Ml Ampule IV 11/12/17 21:45 Not Given STAT ONE Hydromorphone HCl 2 mg 11/12/17 21:55 11/12/17 21:59 Hydromorphone 1 Mg/Ml Ampule IV 11/12/17 21:56 2 mg STAT ONE Administration Hydromorphone HCl Confirm 11/12/17 21:57 Dilaudid 2 Mg Injection Administered 11/12/17 21:58 Dose 2 mg .ROUTE .STK-MED ONE Sodium Chloride 1,000 mls @ 999 mls/hr 11/12/17 21:22 11/12/17 21:39 Sodium Chloride 0.9% 1000 Ml IV 11/12/17 22:22 999 mls/hr .Q1H1M STA Administration Sodium Chloride Confirm 11/12/17 21:34 Sodium Chloride 0.9% 1000 Ml Administered 11/12/17 21:35 Dose 1,000 mls @ ud .ROUTE .STK-MED ONE Ketorolac Tromethamine 30 mg 11/12/17 21:24 11/12/17 21:39 Toradol 30 Mg Injection IV 11/12/17 21:25 30 mg STAT ONE Administration Ketorolac Tromethamine Confirm 11/12/17 21:34 Toradol 30 Mg Injection Administered 11/12/17 21:35 Dose 30 mg .ROUTE .STK-MED ONE Lab/Rad Data: Laboratory Result Diagrams 11/12/17 21:30 11/12/17 21:30 Laboratory Results 11/12/17 11/12/17 11/12/17 Range/Units 21:40 21:30 21:30 WBC (4.0-10.5) K/mm3 RBC (4.1-5.4) M/mm3 Hgb (12.0-16.0) gm/dl Hct (35-47) % MCV (78-100) fl MCH (26-32) pg MCHC (32-36) g/dl RDW (11.5-14.0) % Plt Count (150-450) K/mm3 MPV (6-9.5) fl Absolute Granulocytes (1.4-6.9) Segmented Neutrophils (36.0-66.0) % Lymphocytes (Manual) (24-44) % Monocytes (Manual) (0.0-12.0) % Eosinophils (Manual) (0.00-3.0) % Platelet Estimate (NORMAL) RBC Morphology Sodium 143 (137-145) mmol/L Potassium 3.3 L (3.5-5.1) mmol/L Chloride 108 H (98-107) mmol/L Carbon Dioxide 26 (22-30) mmol/L Anion Gap 12.0 (5-15) MEQ/L BUN 25 H (7-17) mg/dL Creatinine 0.85 (0.52-1.04) mg/dL Estimated GFR > 60.0 ML/MIN Glucose 206 H (74-106) mg/dL Lactic Acid (0.4-2.0) Calcium 9.3 (8.4-10.2) mg/dL Total Bilirubin 0.20 (0.2-1.3) mg/dL AST 29 (14-36) U/L ALT 35 (0-35) U/L Alkaline Phosphatase 120 (38-126) U/L Troponin I < 0.012 (0.000-0.034) ng/mL Serum Total Protein 6.0 L (6.3-8.2) g/dL Albumin 3.6 (3.5-5.0) g/dL Ur Collection Type CLEAN CATCH Urine Color YELLOW (YELLOW) Urine Appearance SLIGHTLY CLOUDY (CLEAR) Urine pH 5.0 (5-6) Ur Specific [place] 1.030 (1.005-1.025) Urine Protein NEGATIVE (Negative) Urine Ketones SMALL (NEGATIVE) Urine Blood NEGATIVE (0-5) Pawel/ul Urine Nitrite NEGATIVE (NEGATIVE) Urine Bilirubin NEGATIVE (NEGATIVE) Urine Urobilinogen NORMAL (0-1) mg/dL Ur Leukocyte Esterase NEGATIVE (NEGATIVE) Urine Culture Reflexed NO (NO) Urine Glucose 1000 (NEGATIVE) mg/dL Specimen Received 11/12/17 2140 11/12/17 11/12/17 Range/Units 21:30 21:30 WBC 13.0 H (4.0-10.5) K/mm3 RBC 4.01 L (4.1-5.4) M/mm3 Hgb 12.7 (12.0-16.0) gm/dl Hct 38.4 (35-47) % MCV 95.8 (78-100) fl MCH 31.6 (26-32) pg MCHC 33.1 (32-36) g/dl RDW 14.0 (11.5-14.0) % Plt Count 234 (150-450) K/mm3 MPV 11.5 H (6-9.5) fl Absolute Granulocytes 9.89 H (1.4-6.9) Segmented Neutrophils 73 H (36.0-66.0) % Lymphocytes (Manual) 22 L (24-44) % Monocytes (Manual) 4 (0.0-12.0) % Eosinophils (Manual) 1 (0.00-3.0) % Platelet Estimate NORMAL (NORMAL) RBC Morphology NORMAL Sodium (137-145) mmol/L Potassium (3.5-5.1) mmol/L Chloride (98-107) mmol/L Carbon Dioxide (22-30) mmol/L Anion Gap (5-15) MEQ/L BUN (7-17) mg/dL Creatinine (0.52-1.04) mg/dL Estimated GFR ML/MIN Glucose (74-106) mg/dL Lactic Acid 3.1 H (0.4-2.0) Calcium (8.4-10.2) mg/dL Total Bilirubin (0.2-1.3) mg/dL AST (14-36) U/L ALT (0-35) U/L Alkaline Phosphatase (38-126) U/L Troponin I (0.000-0.034) ng/mL Serum Total Protein (6.3-8.2) g/dL Albumin (3.5-5.0) g/dL Ur Collection Type Urine Color (YELLOW) Urine Appearance (CLEAR) Urine pH (5-6) Ur Specific [place] (1.005-1.025) Urine Protein (Negative) Urine Ketones (NEGATIVE) Urine Blood (0-5) Pawel/ul Urine Nitrite (NEGATIVE) Urine Bilirubin (NEGATIVE) Urine Urobilinogen (0-1) mg/dL Ur Leukocyte Esterase (NEGATIVE) Urine Culture Reflexed (NO) Urine Glucose (NEGATIVE) mg/dL Specimen Received - Progress Progress: improved, re-examined Progress Note: 11/12/17 23:52 per patient discussion she also has chronic low level diverticuliitis and feels like this is flaring and would like to go back on her levaquin ( unable to tolerate flagyl/) until she can get into her PCP this week. discussed risks and benefits and pt wishes to proceed and likewise without further imaging at this time; Discussed limitations of the imaging performed and that undetected shoulder and rib pathology may still be present with need to f/u jyothi right shoulder with orhto alos this week . Counseled pt/family regarding: lab results, diagnosis, need for follow-up, rad results - Departure Time of Disposition: 23:55 Departure Disposition: Home Clinical Impression: early diverticular inflammation, right shoulder rotator cuff re-injury, Diverticulitis Condition: Good Critical Care Time: No Referrals: PAULETTE SALAZAR [Primary Care Provider] - Instructions: Contusion (DC), Rotator Cuff Injury Additional Instructions: followup with your ORtho Dr as planned , as discussed a rotator cuff re-injury is quite possible from your fall and followup with your GI Dr or PCP; return meantime if any concerns Prescriptions: Levofloxacin [Levaquin] 500 mg PO DAILY #10 tablet
[2017-11-12] MEDS ORDERED: Sodium Chloride 0.9% 1000 ML 1,000 ML IV STA (21:22)
[2017-11-12] MEDS ORDERED: TORAdol 30 mg Injection IV ONE (21:24)
[2017-11-12] MEDS ORDERED: Sodium Chloride 0.9% 1000 ML 1,000 ML ONE (21:34)
[2017-11-12] MEDS ORDERED: TORAdol 30 mg Injection ONE (21:34)
[2017-11-12 21:38] LABS: Lactic Acid 3.1 (0.4-2.0)
[2017-11-12] MEDS ORDERED: Hydromorphone 1 mg/ml Ampule IV ONE ×2 (21:44→21:55)
[2017-11-12 21:46] LABS: Granulocyte Absolute (ANC) 9.89 (1.4-6.9); Hematocrit 38.4 % (35-47); Hemoglobin 12.7 gm/dl (12.0-16.0); Mean Cell Volume 95.8 fl (78-100); Mean Corpuscular Hgb Concent. 33.1 g/dl (32-36); Mean Platelet Volume 11.5 fl (6-9.5); Platelet Count 234 K/mm3 (150-450); Red Blood Count 4.01 M/mm3 (4.1-5.4)
[2017-11-12 21:49] LABS: Appearance SLIGHTLY CLOUDY (CLEAR); Bilirubin NEGATIVE (NEGATIVE); Blood NEGATIVE Ery/ul (0-5); Glucose 1000 mg/dL (NEGATIVE); Ketones SMALL (NEGATIVE); Leukocyte Esterase NEGATIVE (NEGATIVE); Nitrite NEGATIVE (NEGATIVE); Protein,Urine Dip NEGATIVE (Negative); Urobilinogen NORMAL mg/dL (0-1)
[2017-11-12] MEDS ORDERED: DILAUDID 2 MG INJECTION ONE (21:57)
[2017-11-12 22:21] LABS: ALBUMIN 3.6 g/dL (3.5-5.0); ALKALINE PHOSPHATASE 120 U/L (38-126); BLOOD UREA NITROGEN 25 mg/dL (7-17); CHLORIDE 108 mmol/L (98-107); Calcium 9.3 mg/dL (8.4-10.2); Carbon Dioxide 26 mmol/L (22-30); Creatinine 1 0.85 mg/dL (0.52-1.04); Glucose 206 mg/dL (74-106); Potassium 3.3 mmol/L (3.5-5.1); SGOT/AST 29 U/L (14-36); SODIUM 143 mmol/L (137-145)
[2017-11-12 22:28] LABS: SGPT/ALT 35 U/L (0-35)
[2017-11-12 22:32] LABS: Mean Corpuscular Hemoglobin 31.6 pg (26-32)
[2017-11-12 23:08] LABS: Eosinophil 1 % (0.00-3.0); Lymphocytes 22 % (24-44); Monocyte 4 % (0.0-12.0); Neutrophils 73 % (36.0-66.0); Platelet Estimate NORMAL (NORMAL); Total Cells Counted 100
[2017-11-13] MEDS ORDERED: Levofloxacin 250MG Tablet PO ONE (00:03)
[2017-11-13] MEDS ORDERED: Levofloxacin 500 MG Tablet ONE (00:10)
[2017-11-13 00:33] VITALS: BP 136/92; PULSE 76; O2SAT 98
--- NOTE | 2017-11-13 07:05 | XRAY ---
Indication: Pain following fall. Comparison: February 11, 2017. PA/lateral chest again demonstrates normal heart and lungs. Bony thorax intact again with mild spinal degenerative changes and mild dextroscoliosis. No new/acute findings. Comment: Preliminary interpretation was made by [facility]. No discrepancy.
--- NOTE | 2017-11-13 07:07 | XRAY ---
Indication: Pain following fall. Comparison: None 3 views of the right shoulder demonstrates mild AC degenerative arthropathy, healing right 1st rib fracture, and multilevel spinal degenerative changes. No other bony, articular, or soft tissue abnormalities. Comment: Preliminary interpretation was made by [facility]. No discrepancy.
--- NOTE | 2017-11-13 07:09 | XRAY ---
Indication: Pain following fall. Comparison: May 11, 2016. 3 views of the right knee again demonstrates total knee arthroplasty with intact prosthesis/articulation and heterotopic ossifications. No new/acute findings.
== END 2017-11-13 00:31 | disposition home or self-care (01) ==
LOC: ED 20:51
DX: S46.001A Unspecified injury of muscle(s) and tendon(s) of the rotator cuff of right shoulder, initial encounter (principal); K57.90 Diverticulosis of intestine, part unspecified, without perforation or abscess without bleeding; K57.92 Diverticulitis of intestine, part unspecified, without perforation or abscess without bleeding; R74.0 Nonspecific elevation of levels of transaminase and lactic acid dehydrogenase [LDH]; Z79.899 Other long term (current) drug therapy; M54.9 Dorsalgia, unspecified; M25.512 Pain in left shoulder; M25.511 Pain in right shoulder; M25.562 Pain in left knee; M25.561 Pain in right knee; W18.09XA Striking against other object with subsequent fall, initial encounter; Y92.009 Unspecified place in unspecified non-institutional (private) residence as the place of occurrence of the external cause; E10.9 Type 1 diabetes mellitus without complications; Z79.4 Long term (current) use of insulin
CPT/HCPCS: 36000; 36415; 71046; 73030; 73562; 80053; 81002; 83605; 84484; 85025; 93005; 96360; 96374; 96375; 99284; J1170; J1885; A9270-GY

== ENCOUNTER 2018-02-14 18:03 | Emergency (ER) | payer MEDICARE ==
[2018-02-14] MEDS ORDERED: DUONEB 0.5-3 MG/3 ml Neb IH ONE (18:19)
--- NOTE | 2018-02-14 18:20 | ERPHSYRPT ---
- History of Present Illness Source: patient Patient Subjective Stated Complaint: PT states "I have been coughing for the past 2 weeks and been having a hard time breathing. It started 2 weeks after I got the pneumonia vaccine." Triage Nursing Assessment: Pt alert and oriented X 3, skin pwd. Pt able to speak in clear sentences, able to speak in 3 to 4 word sentences. PT ambulates with an upright slow gait, audible wheezes heard, pt voice is squeaky and she has intermittant coughs. Hx Tetanus, Diphtheria Vaccination/Date Given: Yes Hx Influenza Vaccination/Date Given: No Hx Pneumococcal Vaccination/Date Given: Yes Immunizations Up to Date: Yes <EMMIE GOMEZ - Last Filed: 02/14/18 18:28> <FANNY FLORES - Last Filed: 02/15/18 00:27> - History of Present Illness Time Seen by Provider: 02/14/18 18:18 Physician History: mild to mod off and on cough for 2 weeks, no fever, +shortness of breath, pleuritic pain, speech fluent, does not smoke (EMMIE GOMEZ) The patient is a 57-year-old obese female with her complaining of worsening shortness of breath with wheezing for 2 weeks. She received a vaccination for pneumonia about a month ago. She has episodes of wheezing and shortness of breath but she hasn't had one this severe in 2-1/2 years. She has a past medical history of numerous autoimmune diseases per patient report. She states she has lupus and other autoimmune diseases. She has no local doctor. Her doctor is in [place]. She normally takes prednisone 10-20 mg daily but increased her prednisone to 40 mg over the last 4 days. She has been taking Keflex for 7 days and had ciprofloxacin added 3 days ago. (FANNY FLORES) Allergies/Adverse Reactions: codeine Allergy (Intermediate, Verified 11/12/17 21:17) morphine Allergy (Intermediate, Verified 11/12/17 21:17) povidone-iodine [From Betadine] Allergy (Intermediate, Verified 11/12/17 21:17) soap [From Betadine] Allergy (Intermediate, Verified 11/12/17 21:17) adhesive Adverse Reaction (Verified 11/12/17 21:17) Home Medications: Prednisone 20 mg [Deltasone 20 mg] 20 mg PO DAILY 08/07/14 [History] Leflunomide [Arava] 20 mg PO DAILY 09/22/15 [History] Metoprolol Succinate 25 mg Xl* [Toprol-Xl 25MG Tablets] 25 mg PO QAM [History] Dulaglutide [Trulicity] 0.75 mg SQ WEEKLY 02/11/17 [History] Eslicarbazepine Acetate [Aptiom] 600 mg PO DAILY 11/12/17 [History] Fluoxetine HCl 20 mg [Prozac 20 MG] 20 mg PO DAILY 11/12/17 [History] Insulin Lispro [Humalog] 1 unit IM DAILY 11/12/17 [History] Methimazole [Tapazole] 2 tab PO DAILY 11/12/17 [History] Pregabalin [Lyrica 150Mg] 150 mg PO BID 11/12/17 [History] Primidone 50 MG [Mysoline 50Mg] 0.25 tab PO DAILY 11/12/17 [History] Bumetanide 1 mg [Bumex 1 mg] 1 mg PO Q12H PRN PRN 02/14/18 [History] Ciprofloxacin [Cipro 500 MG] 500 mg PO BID 02/14/18 [History] cephALEXin [Cephalexin] 500 mg PO TID 02/14/18 [History] - Review of Systems Constitutional: No Fever Eyes: No Eye Redness Ears, Nose, & Throat: No Mouth Pain Respiratory: Cough, Dyspnea Cardiac: Chest Pain Abdominal/Gastrointestinal: No Abdominal Pain Genitourinary Symptoms: No Dysuria Musculoskeletal: No Neck Pain Skin: No Rash Neurological: No Dizziness <EMMIE GOMEZ - Last Filed: 02/14/18 18:28> - Past Medical History Pertinent Past Medical History: Yes Neurological History: Stroke ENT History: Cataracts Cardiac History: Congestive Heart Failure, Coronary Artery Disease, Other Respiratory History: Asthma, COPD, Pneumonia Endocrine Medical History: Diabetes Type I Musculoskeletal History: Fibromyalgia, Other GI Medical History: Crohns Disease, Diverticulosis History: No Pertinent History Psycho-Social History: No Pertinent History Female Reproductive Disorders: No Pertinent History Other Medical History: Tachycardia. Mixed connective tissue disease. RA/lupus - Past Surgical History Past Surgical History: Yes Neuro Surgical History: No Pertinent History Cardiac: Cardiac Catheterization Respiratory: No Pertinent History Gastrointestinal: Appendectomy, Cholecystectomy, Other Genitourinary: No Pertinent History Musculoskeletal: Orthopedic Surgery, Other Female Surgical History: Hysterectomy, Lumpectomy Other Surgical History: bev fundoplasty, knee scopes. rods in spine. SI fused. left breast lumpectomy - Social History Smoking Status: Never smoker Exposure to second hand smoke: No Alcohol Use: Socially Drug Use: none Patient Lives Alone: No Significant Family History: no pertinent family hx - Female History Hx Last Menstrual Period: histerectomy <EMMIE GOMEZ - Last Filed: 02/14/18 18:28> - Physical Exam General Appearance: no apparent distress Eye Exam: eyes nml inspection Ears, Nose, Throat Exam: normal pharynx Neck Exam: normal inspection Respiratory Exam: wheezing Cardiovascular/Chest Exam: regular rate/rhythm Abdominal/Gastrointestinal Exam: soft, No tenderness Extremity Exam: normal range of motion Neurologic Exam: alert, oriented x 3, cooperative Skin Exam: normal color, warm, dry SpO2 Interpretation: normal SpO2: 97 Oxygen Delivery: Room Air <EMMIE GOMEZ - Last Filed: 02/14/18 18:28> - Nursing Vital Signs Nursing Vital Signs: Initial Vital Signs Temperature 97.7 F 02/14/18 18:07 Pulse Rate 104 H 02/14/18 18:07 Respiratory Rate 20 02/14/18 18:07 Blood Pressure 183/115 02/14/18 18:07 O2 Sat by Pulse Oximetry 96 02/14/18 18:07 Pain Scale Pain Intensity 5 - CT Exams Chest CT Interpretation: Negative, Tele-radiologist Report (per Dr Yip.), No PE <FANNY FLORES - Last Filed: 02/15/18 00:27> Ordered Tests: Active Orders 24 hr Category Date Time Status Director Of Consulting Services STAT Care 02/14/18 18:15 Active EKG-ER Only STAT Care 02/14/18 18:15 Active IV Insertion STAT Care 02/14/18 18:15 Active Oxygen-ED Only NASAL CANNULA 2 lpm Care 02/14/18 18:15 Active CHEST 1 VIEW (PORTABLE) Stat Exams 02/14/18 18:15 Taken CHEST WITH CONTRAST [CT] Stat Exams 02/14/18 20:14 Taken BLOOD CULTURE Stat Lab 02/14/18 18:30 Received CBC W DIFF Stat Lab 02/14/18 18:20 Completed CMP Stat Lab 02/14/18 18:20 Completed D-DIMER QUANTITATION Stat Lab 02/14/18 18:20 Completed Lactic Acid Stat Lab 02/14/18 18:20 Completed Lactic Acid Stat Lab 02/14/18 21:06 Completed Lactic Acid Stat Lab 02/14/18 23:15 Ordered Manual Differential NC Stat Lab 02/14/18 18:20 Completed NT PRO BNP Stat Lab 02/14/18 18:20 Completed PROTIME WITH INR Stat Lab 02/14/18 18:20 Completed PTT Stat Lab 02/14/18 18:20 Completed TROPONIN Q3H Lab 02/14/18 18:20 Completed TROPONIN Q3H Lab 02/14/18 21:09 Completed TROPONIN Q3H Lab 02/15/18 00:15 Ordered TROPONIN Q3H Lab 02/15/18 03:15 Ordered TROPONIN Q3H Lab 02/15/18 06:15 Ordered Peak Expiratory Flow Rate ONCE RT 02/14/18 18:30 Active Respiratory Nebulizer STAT RT 02/14/18 18:16 Completed Respiratory Nebulizer STAT RT 02/14/18 19:44 Completed Respiratory Therapy Assessment DAILY RT 02/14/18 18:31 Active Medication Summary Discontinued Medications Generic Name Dose Route Start Last Admin Trade Name Freq PRN Reason Stop Dose Admin Albuterol Sulfate 2.5 mg 02/14/18 19:44 02/14/18 19:51 Proventil 2.5 Mg/3 Ml Neb IH 02/14/18 19:45 2.5 mg STAT ONE Administration Albuterol Sulfate Confirm 02/14/18 19:49 Proventil 2.5 Mg/3 Ml Neb Administered 02/14/18 19:50 Dose 2.5 mg IH .STK-MED ONE Albuterol/Ipratropium 3 ml 02/14/18 18:16 02/14/18 18:27 Duoneb 0.5-3 Mg/3 Ml Neb IH 02/14/18 18:17 3 ml STAT ONE Administration Albuterol/Ipratropium Confirm 02/14/18 18:19 Duoneb 0.5-3 Mg/3 Ml Neb Administered 02/14/18 18:20 Dose 3 ml IH .STK-MED ONE Sodium Chloride 1,000 mls @ 999 mls/hr 02/14/18 18:27 02/14/18 18:35 Sodium Chloride 0.9% 1000 Ml IV 02/14/18 19:27 999 mls/hr .Q1H1M STA Administration Sodium Chloride Confirm 02/14/18 18:33 Sodium Chloride 0.9% 1000 Ml Administered 02/14/18 18:34 Dose 1,000 mls @ ud .ROUTE .STK-MED ONE Ceftriaxone Sodium/Dextrose 1 g in 50 mls @ 100 mls/hr 02/14/18 20:14 20:24 Rocephin 1 Gm-D5w 50 Ml Bag IV 02/14/18 20:43 100 mls/hr STAT STA 100 mls/hr Administration Sodium Chloride 1,000 mls @ 999 mls/hr 02/14/18 20:14 02/14/18 20:24 Sodium Chloride 0.9% 1000 Ml IV 02/14/18 21:14 999 mls/hr .Q1H1M STA Administration Sodium Chloride Confirm 02/14/18 20:18 Sodium Chloride 0.9% 1000 Ml Administered 02/14/18 20:19 Dose 1,000 mls @ ud .ROUTE .STK-MED ONE Ceftriaxone Sodium/Dextrose Confirm 02/14/18 20:18 Rocephin 1 Gm-D5w 50 Ml Bag Administered 02/14/18 20:19 Dose 1 g in 50 mls @ ud IV .STK-MED ONE Methylprednisolone Sodium Succinate 125 mg 02/14/18 18:16 02/14/18 18:35 Solu-Medrol 125 Mg IV 02/14/18 18:17 125 mg STAT ONE Administration Methylprednisolone Sodium Succinate Confirm 02/14/18 18:33 Solu-Medrol 125 Mg Administered 02/14/18 18:34 Dose 125 mg .ROUTE .STK-MED ONE Lab/Rad Data: Laboratory Result Diagrams 02/14/18 18:20 02/14/18 18:20 Laboratory Results 02/14/18 02/14/18 02/14/18 Range/Units 21:09 21:06 18:20 WBC (4.0-10.5) K/mm3 RBC (4.1-5.4) M/mm3 Hgb (12.0-16.0) gm/dl Hct (35-47) % MCV (78-100) fl MCH (26-32) pg MCHC (32-36) g/dl RDW (11.5-14.0) % Plt Count (150-450) K/mm3 MPV (6-9.5) fl Absolute Granulocytes (1.4-6.9) Segmented Neutrophils (36.0-66.0) % Band Neutrophils (0.0-2.0) % Lymphocytes (Manual) (24-44) % Monocytes (Manual) (0.0-12.0) % Platelet Estimate (NORMAL) RBC Morphology PT (9.95-12.35) SECONDS INR (0.8-3.0) APTT (25.3-37.0) SECONDS D-Dimer (215-500) ng/mL Sodium (137-145) mmol/L Potassium (3.5-5.1) mmol/L Chloride (98-107) mmol/L Carbon Dioxide (22-30) mmol/L Anion Gap (5-15) MEQ/L BUN (7-17) mg/dL Creatinine (0.52-1.04) mg/dL Estimated GFR ML/MIN Glucose (74-106) mg/dL Lactic Acid 6.5 H 6.3 H (0.4-2.0) Calcium (8.4-10.2) mg/dL Total Bilirubin (0.2-1.3) mg/dL AST (14-36) U/L ALT (0-35) U/L Alkaline Phosphatase (38-126) U/L Troponin I < 0.012 (0.000-0.034) ng/mL NT-Pro-B Natriuret Pep (0-900) pg/mL Serum Total Protein (6.3-8.2) g/dL Albumin (3.5-5.0) g/dL 02/14/18 02/14/18 02/14/18 Range/Units 18:20 18:20 18:20 WBC 12.7 H (4.0-10.5) K/mm3 RBC 4.58 (4.1-5.4) M/mm3 Hgb 14.0 (12.0-16.0) gm/dl Hct 42.6 (35-47) % MCV 93.0 (78-100) fl MCH 30.6 (26-32) pg MCHC 32.9 (32-36) g/dl RDW 13.6 (11.5-14.0) % Plt Count 257 (150-450) K/mm3 MPV 12.0 H (6-9.5) fl Absolute Granulocytes 10.81 H (1.4-6.9) Segmented Neutrophils 86 H (36.0-66.0) % Band Neutrophils 2 (0.0-2.0) % Lymphocytes (Manual) 8 L (24-44) % Monocytes (Manual) 4 (0.0-12.0) % Platelet Estimate NORMAL (NORMAL) RBC Morphology NORMAL PT 11.2 (9.95-12.35) SECONDS INR 0.96 (0.8-3.0) APTT 24.2 L (25.3-37.0) SECONDS D-Dimer 1489 H* (215-500) ng/mL Sodium 140 (137-145) mmol/L Potassium 3.9 (3.5-5.1) mmol/L Chloride 105 (98-107) mmol/L Carbon Dioxide 20 L (22-30) mmol/L Anion Gap 18.4 H (5-15) MEQ/L BUN 23 H (7-17) mg/dL Creatinine 0.58 (0.52-1.04) mg/dL Estimated GFR > 60.0 ML/MIN Glucose 491 H (74-106) mg/dL Lactic Acid (0.4-2.0) Calcium 9.4 (8.4-10.2) mg/dL Total Bilirubin 0.40 (0.2-1.3) mg/dL AST 67 H (14-36) U/L ALT 79 H (0-35) U/L Alkaline Phosphatase 205 H (38-126) U/L Troponin I (0.000-0.034) ng/mL NT-Pro-B Natriuret Pep 182 (0-900) pg/mL Serum Total Protein 6.8 (6.3-8.2) g/dL Albumin 4.2 (3.5-5.0) g/dL 02/14/18 Range/Units 18:20 WBC (4.0-10.5) K/mm3 RBC (4.1-5.4) M/mm3 Hgb (12.0-16.0) gm/dl Hct (35-47) % MCV (78-100) fl MCH (26-32) pg MCHC (32-36) g/dl RDW (11.5-14.0) % Plt Count (150-450) K/mm3 MPV (6-9.5) fl Absolute Granulocytes (1.4-6.9) Segmented Neutrophils (36.0-66.0) % Band Neutrophils (0.0-2.0) % Lymphocytes (Manual) (24-44) % Monocytes (Manual) (0.0-12.0) % Platelet Estimate (NORMAL) RBC Morphology PT (9.95-12.35) SECONDS INR (0.8-3.0) APTT (25.3-37.0) SECONDS D-Dimer (215-500) ng/mL Sodium (137-145) mmol/L Potassium (3.5-5.1) mmol/L Chloride (98-107) mmol/L Carbon Dioxide (22-30) mmol/L Anion Gap (5-15) MEQ/L BUN (7-17) mg/dL Creatinine (0.52-1.04) mg/dL Estimated GFR ML/MIN Glucose (74-106) mg/dL Lactic Acid (0.4-2.0) Calcium (8.4-10.2) mg/dL Total Bilirubin (0.2-1.3) mg/dL AST (14-36) U/L ALT (0-35) U/L Alkaline Phosphatase (38-126) U/L Troponin I < 0.012 (0.000-0.034) ng/mL NT-Pro-B Natriuret Pep (0-900) pg/mL Serum Total Protein (6.3-8.2) g/dL Albumin (3.5-5.0) g/dL <EMMIE GOMEZ - Last Filed: 02/14/18 18:28> - Progress Progress: unchanged Air Movement: fair Counseled pt/family regarding: lab results, diagnosis, rad results <FANNY FLORES - Last Filed: 02/15/18 00:27> - Progress Progress Note: 02/14/18 18:[address] Flores at 19:00 (EMMIE GOMEZ) Pt care discussed and care accepted from Dr Gomez at 19:00. 02/14/18 19:20 (FANNY FLORES) <EMMIE GOMEZ - Last Filed: 02/14/18 18:28> - Departure Time of Disposition: 00:25 Departure Disposition: Transfer (transfer to [facility] per Dr Willis) Critical Care Time: No <FANNY FLORES - Last Filed: 02/15/18 00:27> - Departure Clinical Impression: Dyspnea, Wheezing, Elevated lactic acid level Condition: Stable Referrals: PAULETTE SALAZAR [Primary Care Provider] -
[2018-02-14 18:24] LABS: Lactic Acid 6.3 (0.4-2.0)
[2018-02-14] MEDS: DUONEB 0.5-3 MG/3 ml Neb IH ONE (18:27)
[2018-02-14] MEDS ORDERED: Sodium Chloride 0.9% 1000 ML 1,000 ML ONE ×2 (18:33→20:18)
[2018-02-14] MEDS ORDERED: solu-MEDROL 125 MG ONE (18:33)
[2018-02-14] MEDS: solu-MEDROL 125 MG IV ONE (18:35)
[2018-02-14] MEDS: Sodium Chloride 0.9% 1000 ML 1,000 ML IV STA ×2 (18:35→20:24)
[2018-02-14 18:41] LABS: Granulocyte Absolute (ANC) 10.81 (1.4-6.9); Hematocrit 42.6 % (35-47); Mean Corpuscular Hemoglobin 30.6 pg (26-32); Mean Corpuscular Hgb Concent. 32.9 g/dl (32-36); Platelet Count 257 K/mm3 (150-450); Red Blood Count 4.58 M/mm3 (4.1-5.4); Red Cell Distribution Width 13.6 % (11.5-14.0); White Blood Count 12.7 K/mm3 (4.0-10.5)
[2018-02-14 18:58] LABS: INR 0.96 (0.8-3.0)
[2018-02-14 19:00] LABS: PTT 24.2 SECONDS (25.3-37.0)
[2018-02-14 19:09] LABS: SGPT/ALT 79 U/L (0-35)
[2018-02-14 19:11] LABS: ALBUMIN 4.2 g/dL (3.5-5.0); ALKALINE PHOSPHATASE 205 U/L (38-126); ANION GAP 18.4 MEQ/L (5-15); BLOOD UREA NITROGEN 23 mg/dL (7-17); CHLORIDE 105 mmol/L (98-107); Calcium 9.4 mg/dL (8.4-10.2); Carbon Dioxide 20 mmol/L (22-30); Creatinine 1 0.58 mg/dL (0.52-1.04); Glucose 491 mg/dL (74-106); NT PRO BNP 182 pg/mL (0-900); Potassium 3.9 mmol/L (3.5-5.1); SGOT/AST 67 U/L (14-36); SODIUM 140 mmol/L (137-145); Total Protein 6.8 g/dL (6.3-8.2)
[2018-02-14 19:20] LABS: BAND 2 % (0.0-2.0); Lymphocytes 8 % (24-44); Monocyte 4 % (0.0-12.0); Neutrophils 86 % (36.0-66.0); Platelet Estimate NORMAL (NORMAL); Total Cells Counted 100
[2018-02-14] MEDS ORDERED: PROVENTIL 2.5 MG/3 ML NEB IH ONE (19:49)
[2018-02-14] MEDS: PROVENTIL 2.5 MG/3 ML NEB IH ONE (19:51)
[2018-02-14] MEDS ORDERED: ROCEPHIN 1 Gm-D5w 50 ml Bag** 1 G/50 ML IVPB IV ONE (20:18)
[2018-02-14] MEDS: ROCEPHIN 1 Gm-D5w 50 ml Bag** 1 G/50 ML IVPB IV STA (20:24)
[2018-02-14 21:16] LABS: Lactic Acid 6.5 (0.4-2.0)
[2018-02-15 00:32] LABS: Lactic Acid 4.4 (0.4-2.0)
[2018-02-15 00:36] VITALS: BP 141/95; PULSE 94; O2SAT 97
--- NOTE | 2018-02-15 09:24 | XRAY ---
Indication: Severe cough. Comparison: November 12, 2017. Portable chest again demonstrates normal heart and lungs. Bony thorax intact again with mild degenerative changes. No new/acute findings.
--- NOTE | 2018-02-15 09:24 | XRAY ---
Indication: Short of breath, wheezing, and cough. Elevated d-dimer. Multiple contiguous axial images obtained through the chest using 80 cc Isovue 370 contrast and PE protocol. Comparison: February 11, 2017. There is satisfactory opacification of the pulmonary arteries to include the lobar and segmental branches. No filling defect or pulmonary embolus. Heart is not enlarged. Aorta is normal in course and caliber. No pathologic mediastinal/hilar lymphadenopathy. Stable small hiatal hernia. Examination of the lumbar parenchyma demonstrates well-inflated clear lungs. Bony thorax intact with mild degenerative changes throughout the spine. Limited upper abdomen again demonstrates cholecystectomy clips. Impression: 1. Again negative for pulmonary embolus. 2. Stable small hiatal hernia. 3. Remaining CT chest with contrast exam is negative. Comment: Preliminary interpretation was made by [facility]. No discrepancy. CT DI 28.13
== END 2018-02-15 01:26 | disposition short-term general hospital (02) ==
LOC: ED 18:03
DX: R06.00 Dyspnea, unspecified (principal); R06.2 Wheezing; R74.0 Nonspecific elevation of levels of transaminase and lactic acid dehydrogenase [LDH]; Z79.899 Other long term (current) drug therapy
CPT/HCPCS: 36000; 36415; 71045; 71260; 80053; 82962; 83605; 83880; 84484; 85025; 85379; 85610; 85730; 87040; 93005; 93041; 94150; 94640; 96374; 96375; 99285; J7609; 96360; 96361; 96365; J0696; J2930; A9270-GY

== ENCOUNTER 2018-08-14 10:30 | Emergency (ER) | payer MEDICARE, OTHER ==
[2018-08-14] MEDS ORDERED: BABY ASPIRIN 81 MG CHEW PO ONE (10:51)
--- NOTE | 2018-08-14 10:59 | ERPHSYRPT ---
- History of Present Illness Time Seen by Provider: 08/14/18 10:53 Historian: patient Exam Limitations: no limitations Physician History: 58-year-old white female with history of CVA, fibromyalgia, cataracts, congestive heart failure, coronary artery disease, asthma, COPD, pneumonia, diabetes type 1, fibromyalgia, Crohn's, diverticulitis, tachycardia, mixed connective tissue disease, rheumatoid arthritis, lupus Patient arrives with complaints of cough congestion symptoms for 3 weeks states she was on the way to the hospital today began to have pain in the upper right chest described as dull aching. Patient apparently is on a fentanyl patch which she states is in place. Patient without nausea no vomiting. Past medical history includes CVA, cataracts, CHF, coronary artery disease, asthma, COPD, pneumonia, diabetes type 1, fibromyalgia, Crohn's, diverticulitis , tachycardia, mixed connective tissue disease, rheumatoid arthritis, lupus Past surgical history includes cardiac catheter, appendectomy, cholecystectomy, orthopedic surgery, hysterectomy, lumpectomy, Serg fundoplication, knee surgery (replacement, SI fixed, left breast lumpectomy Social history patient denies tobacco alcohol or illicit drug use Timing/Duration: week(s) (symptoms for 3 weeks chest pain since just prior to arrival) Activities at Onset: none Quality: dullness Location: other (Right upper chest) Chest Pain Radiation: no radiation Severity of Pain-Max: moderate Severity of Pain-Current: moderate Modifying Factors: Improves With: other (patient on fentanyl patch) Associated Symptoms: cough, No nausea, No vomiting, No palpitations, No heartburn, No abdominal pain, No shortness of breath, No hurts to breathe, No diaphoresis, No chills, No fever, No fatigue, No weakness, No swelling/lump in chest, No syncope, No headache, No dizziness, No edema, No back pain Aspirin Treatment Today: 81 mg x 4, provided by ED Allergies/Adverse Reactions: codeine Allergy (Intermediate, Verified 11/12/17 21:17) morphine Allergy (Intermediate, Verified 11/12/17 21:17) povidone-iodine [From Betadine] Allergy (Intermediate, Verified 11/12/17 21:17) soap [From Betadine] Allergy (Intermediate, Verified 11/12/17 21:17) adhesive Adverse Reaction (Verified 11/12/17 21:17) Home Medications: Leflunomide [Arava] 20 mg PO DAILY 09/22/15 [History] Metoprolol Succinate 25 mg Xl* [Toprol-Xl 25MG Tablets] 25 mg PO QAM [History] Dulaglutide [Trulicity] 0.75 mg SQ WEEKLY 02/11/17 [History] Eslicarbazepine Acetate [Aptiom] 600 mg PO DAILY 11/12/17 [History] Insulin Lispro [Humalog] 1 unit IM DAILY 11/12/17 [History] Methimazole [Tapazole] 2 tab PO DAILY 11/12/17 [History] Pregabalin [Lyrica 150Mg] 150 mg PO BID 11/12/17 [History] Primidone 50 MG [Mysoline 50Mg] 0.25 tab PO DAILY 11/12/17 [History] Escitalopram Oxalate [Lexapro] 10 mg PO DAILY 08/14/18 [History] Hx Tetanus, Diphtheria Vaccination/Date Given: Yes Hx Influenza Vaccination/Date Given: No Hx Pneumococcal Vaccination/Date Given: Yes - Review of Systems Constitutional: No Fever, No Chills Eyes: No Symptoms Ears, Nose, & Throat: No Symptoms Respiratory: Cough, Dyspnea Cardiac: Chest Pain Abdominal/Gastrointestinal: No Abdominal Pain, No Nausea, No Vomiting, No Diarrhea Genitourinary Symptoms: No Dysuria Musculoskeletal: No Back Pain, No Neck Pain Skin: No Rash Neurological: No Dizziness, No Focal Weakness, No Sensory Changes Psychological: No Symptoms Endocrine: No Symptoms All Other Systems: Reviewed and Negative - Past Medical History Pertinent Past Medical History: Yes Neurological History: Stroke ENT History: Cataracts Cardiac History: Congestive Heart Failure, Coronary Artery Disease, Other Respiratory History: Asthma, COPD, Pneumonia Endocrine Medical History: Diabetes Type I Musculoskeletal History: Fibromyalgia, Other GI Medical History: Crohns Disease, Diverticulosis History: No Pertinent History Psycho-Social History: No Pertinent History Female Reproductive Disorders: No Pertinent History Other Medical History: Tachycardia. Mixed connective tissue disease. RA/lupus - Past Surgical History Past Surgical History: Yes Neuro Surgical History: No Pertinent History Cardiac: Cardiac Catheterization Respiratory: No Pertinent History Gastrointestinal: Appendectomy, Cholecystectomy, Other Genitourinary: No Pertinent History Musculoskeletal: Orthopedic Surgery, Other Female Surgical History: Hysterectomy, Lumpectomy Other Surgical History: bev fundoplasty, knee scopes. rods in spine. SI fused. left breast lumpectomy - Social History Smoking Status: Never smoker Exposure to second hand smoke: No Alcohol Use: Socially Drug Use: none Patient Lives Alone: No Significant Family History: no pertinent family hx - Nursing Vital Signs Nursing Vital Signs: Initial Vital Signs Temperature 97.9 F 08/14/18 10:32 Pulse Rate 96 H 08/14/18 10:32 Respiratory Rate 20 08/14/18 10:32 Blood Pressure 145/98 08/14/18 10:32 O2 Sat by Pulse Oximetry 98 08/14/18 10:32 Pain Scale Pain Intensity 4 - Physical Exam General Appearance: mild distress Eye Exam: PERRL/EOMI, eyes nml inspection Ears, Nose, Throat Exam: normal ENT inspection, moist mucous membranes Neck Exam: normal inspection, non-tender, supple, full range of motion Respiratory Exam: normal breath sounds, lungs clear, No respiratory distress Cardiovascular Exam: regular rate/rhythm, normal heart sounds, capillary refill <2 sec Gastrointestinal/Abdomen Exam: soft, No tenderness, No mass Back Exam: normal inspection, No CVA tenderness, No vertebral tenderness Extremity Exam: normal inspection, normal range of motion Neurologic Exam: alert, oriented x 3, cooperative, body masker II-XII nml as tested, normal mood/affect, sensation nml, No motor deficits Skin Exam: normal color, warm, dry SpO2 Interpretation: normal - Course Nursing assessment & vital signs reviewed: Yes EKG Interpreted by Me: RATE (89 bpm), Sinus Rhythm, NORMAL AXIS, Other (EKG: Sinus Arrhythmia, 89 bpm, normal axis, no acute ST or T wave changes, compared to February 14, 2018) - Radiology Exams Chest X-ray Interpretation: Discussed w/ radiologist (chest x-ray: Impression: Normal heart and lungs, bony thorax intact with mild degenerative changes and mild scoliosis with new spinal stimulat terminating mid thoracic level) - CT Exams Chest CT Interpretation: Discussed w/radiologist (CT of the chest with contrast: Impression: 1. Negative pulmonary embolism. 2. New patchy bilateral airspace disease.) Ordered Tests: Active Orders 24 hr Category Date Time Status Commercial Loan Closer STAT Care 08/14/18 10:52 Active EKG-ER Only STAT Care 08/14/18 10:51 Active IV Insertion STAT Care 08/14/18 10:51 Active Pulse Oximetry (ED) STAT Care 08/14/18 10:51 Active CHEST 1 VIEW (PORTABLE) Stat Exams 08/14/18 10:52 Completed CHEST WITH CONTRAST [CT] Stat Exams 08/14/18 12:01 Completed AMYLASE Stat Lab 08/14/18 11:15 Completed BLOOD CULTURE Stat Lab 08/14/18 14:52 Received CBC W DIFF Stat Lab 08/14/18 11:15 Completed CMP Stat Lab 08/14/18 11:15 Completed CULTURE,SPUTUM Stat Lab 08/14/18 14:15 Uncollected D-DIMER QUANTITATION Stat Lab 08/14/18 11:15 Completed LIPASE Stat Lab 08/14/18 11:15 Completed NT PRO BNP Stat Lab 08/14/18 11:15 Completed PROTIME WITH INR Stat Lab 08/14/18 11:15 Completed PTT Stat Lab 08/14/18 11:15 Completed TROPONIN Q3H Lab 08/14/18 11:15 Completed TROPONIN Q3H Lab 08/14/18 14:52 Completed TROPONIN Q3H Lab 08/14/18 17:00 Ordered TROPONIN Q3H Lab 08/14/18 20:00 Ordered TROPONIN Q3H Lab 08/14/18 23:00 Ordered Medication Summary Generic Name Dose Route Start Last Admin Trade Name Freq PRN Reason Stop Dose Admin Sodium Chloride 1,000 mls @ 100 mls/hr 08/14/18 11:00 08/14/18 11:19 Sodium Chloride 0.9% 1000 Ml IV 09/13/18 10:59 100 mls/hr .Q10H ZEENAT Administration Discontinued Medications Generic Name Dose Route Start Last Admin Trade Name Freq PRN Reason Stop Dose Admin Aspirin 324 mg 08/14/18 10:51 08/14/18 11:20 Baby Aspirin 81 Mg Chew PO 08/14/18 10:52 324 mg STAT ONE Administration Fentanyl Citrate 50 mcg 08/14/18 14:15 08/14/18 15:13 Sublimaze 100 Mcg/2 Ml IV 08/14/18 14:16 50 mcg STAT ONE Administration Fentanyl Citrate Confirm 08/14/18 14:22 Sublimaze 100 Mcg/2 Ml Administered 08/14/18 14:23 Dose 100 mcg .ROUTE .STK-MED ONE Ceftriaxone Sodium/Dextrose 1 g in 50 mls @ 100 mls/hr 08/14/18 14:14 15:13 Rocephin 1 Gm-D5w 50 Ml Bag IV 08/14/18 14:43 100 mls/hr STAT STA 100 mls/hr Administration Ceftriaxone Sodium/Dextrose Confirm 08/14/18 14:23 Rocephin 1 Gm-D5w 50 Ml Bag Administered 08/14/18 14:24 Dose 1 g in 50 mls @ ud IV .STK-MED ONE Ondansetron HCl 4 mg 08/14/18 14:15 08/14/18 15:14 Zofran 4 Mg/2 Ml Vial IV 08/14/18 14:16 4 mg STAT ONE Administration Ondansetron HCl Confirm 08/14/18 14:22 Zofran 4 Mg/2 Ml Vial Administered 08/14/18 14:23 Dose 4 mg .ROUTE .STK-MED ONE Lab/Rad Data: Laboratory Result Diagrams 08/14/18 11:15 08/14/18 11:15 Laboratory Results 08/14/18 08/14/18 08/14/18 Range/Units 14:52 11:15 11:15 WBC (4.0-10.5) K/mm3 RBC (4.1-5.4) M/mm3 Hgb (12.0-16.0) gm/dl Hct (35-47) % MCV (78-100) fl MCH (26-32) pg MCHC (32-36) g/dl RDW (11.5-14.0) % Plt Count (150-450) K/mm3 MPV (6-9.5) fl Gran % (36.0-66.0) % Eos # (Auto) (0-0.5) Absolute Lymphs (auto) (1.0-4.6) Absolute Monos (auto) (0.0-1.3) Lymphocytes % (24.0-44.0) % Monocytes % (0.0-12.0) % Eosinophils % (0.00-5.0) % Basophils % (0.0-0.4) % Absolute Granulocytes (1.4-6.9) Basophils # (0-0.4) PT (9.95-12.35) SECONDS INR (0.8-3.0) APTT (25.3-37.0) SECONDS D-Dimer (215-500) ng/mL Sodium (137-145) mmol/L Potassium (3.5-5.1) mmol/L Chloride (98-107) mmol/L Carbon Dioxide (22-30) mmol/L Anion Gap (5-15) MEQ/L BUN (7-17) mg/dL Creatinine (0.52-1.04) mg/dL Estimated GFR ML/MIN Glucose (74-106) mg/dL Calcium (8.4-10.2) mg/dL Total Bilirubin (0.2-1.3) mg/dL AST (14-36) U/L ALT (0-35) U/L Alkaline Phosphatase (38-126) U/L Troponin I < 0.012 < 0.012 (0.000-0.034) ng/mL NT-Pro-B Natriuret Pep (0-900) pg/mL Serum Total Protein (6.3-8.2) g/dL Albumin (3.5-5.0) g/dL Amylase 58 (30-110) U/L Lipase 96 (23-300) U/L 08/14/18 08/14/18 08/14/18 Range/Units 11:15 11:15 11:15 WBC 7.8 (4.0-10.5) K/mm3 RBC 4.81 (4.1-5.4) M/mm3 Hgb 14.1 (12.0-16.0) gm/dl Hct 42.5 (35-47) % MCV 88.4 (78-100) fl MCH 29.3 (26-32) pg MCHC 33.2 (32-36) g/dl RDW 13.3 (11.5-14.0) % Plt Count 317 (150-450) K/mm3 MPV 11.1 H (6-9.5) fl Gran % 51.3 (36.0-66.0) % Eos # (Auto) 0.22 (0-0.5) Absolute Lymphs (auto) 2.33 (1.0-4.6) Absolute Monos (auto) 1.21 (0.0-1.3) Lymphocytes % 29.8 (24.0-44.0) % Monocytes % 15.5 H (0.0-12.0) % Eosinophils % 2.8 (0.00-5.0) % Basophils % 0.6 (0.0-0.4) % Absolute Granulocytes 4.02 (1.4-6.9) Basophils # 0.05 (0-0.4) PT 13.8 H (9.95-12.35) SECONDS INR 1.18 (0.8-3.0) APTT 32.1 (25.3-37.0) SECONDS D-Dimer 1340 H* (215-500) ng/mL Sodium 144 (137-145) mmol/L Potassium 4.0 (3.5-5.1) mmol/L Chloride 108 H (98-107) mmol/L Carbon Dioxide 25 (22-30) mmol/L Anion Gap 15.0 (5-15) MEQ/L BUN 10 (7-17) mg/dL Creatinine 0.57 (0.52-1.04) mg/dL Estimated GFR > 60.0 ML/MIN Glucose 112 H (74-106) mg/dL Calcium 9.8 (8.4-10.2) mg/dL Total Bilirubin 0.90 (0.2-1.3) mg/dL AST 24 (14-36) U/L ALT 15 (0-35) U/L Alkaline Phosphatase 136 H (38-126) U/L Troponin I (0.000-0.034) ng/mL NT-Pro-B Natriuret Pep 117 (0-900) pg/mL Serum Total Protein 7.4 (6.3-8.2) g/dL Albumin 4.4 (3.5-5.0) g/dL Amylase (30-110) U/L Lipase (23-300) U/L - Progress Progress: improved Air Movement: fair Progress Note: 08/14/18 14:18 This is a 58-year-old white female with history of CVA, cataracts, CHF, coronary disease, asthma, COPD, pneumonia, diabetes type 1, fibromyalgia, Crohn' s, diverticulitis, tachycardia, and takes connective tissue disease Patient is chronically on a fentanyl patch . She arrives with complaint of pain in her chest on the right and in her armpit on the right she states she's been vomiting she's not eating well she states she has some epigastric pain she states she's been short of breath Patient with stable vitals on arrival patient with an EKG remarkable for sinus arrhythmia, 89 bpm, normal axis, no acute ST or T wave changes are noted Patient with the labs CBC White blood cells 7.8 hemoglobin 14.1 hematocrit 42.5 platelets 317 Patient's d-dimer is elevated at 1340 Patient's chemistry sodium 144 potassium 4.0 chloride 108 bicarbonate 25 BUN 10 creatinine 0.57 glucose 112 Patient's troponin less than 0.012 amylase is normal at 58 lipase is normal at 96 patient with a chest x-ray which shows no acute disease process noted. Patient's CT of the chest which was obtained secondary to elevated d-dimer remarkable for negative pulmonary embolism and new patchy bilateral airspace disease Patient with a limited upper abdomen on the CT showing fatty liver and cholecystectomy clips Patient is having some coughing she states that she is not short of breath I've offered a breathing treatment she does not want this. Will go ahead and give patient Rocephin 1 g IV patient states she is having some epigastric pain therefore we will give patient fentanyl 50 g IV it is noted that she is on a fentanyl patch chronically she also states she has some nauseousness will give her Zofran 4 mg IV. Anticipate discharge on this patient. May consider repeat troponin prior to discharge. 08/14/18 15:29 Patient improved not completely pain-free on her abdomen. Tenderness in the epigastric region upper abdomen on chest x-ray essentially normal amylase lipase are normal troponin normal 2. EKG no acute changes. Will discharge patient with Zithromax, Zofran. Patient has albuterol at home she really feels like she is not short of breath or wheezing. She has fentanyl patches for pain control will have her follow-up with her family doctor for continuing pain control. - Departure Time of Disposition: 15:30 Departure Disposition: Home Clinical Impression: Non-cardiac chest pain Pneumonia Qualifiers: Pneumonia type: due to unspecified organism Laterality: unspecified laterality Lung location: unspecified part of lung Qualified Code(s): J18.9 - Pneumonia, unspecified organism Condition: Fair Critical Care Time: No Referrals: PAULETTE SALAZAR [Primary Care Provider] - Additional Instructions: Return home. Zithromax as directed. Albuterol inhalation treatment as prescribed your family doctor you have this at home. Zofran as directed. Fentanyl patch as prescribed by your family doctor for pain. Follow-up with your family doctor. Clear fluids only 24-48 hours if abdominal pain. Return for acute distress or for severe symptoms. Prescriptions: Ondansetron ODT 4 MG [Zofran Odt 4 mg] 4 mg PO Q6H PRN PRN #10 tab.rapdis PRN Reason: Vomiting Azithromycin 250 mg [Zithromax 250 MG TABLET] 0 mg PO ZPACK #6 tablet
[2018-08-14] MEDS ORDERED: Sodium Chloride 0.9% 1000 ML 1,000 ML IV SCH (11:00)
--- NOTE | 2018-08-14 11:08 | XRAY ---
Indication: Chest pain. Comparison: February 14, 2018. Portable chest again demonstrates normal heart and lungs. Bony thorax intact again with mild degenerative changes and mild scoliosis with new spinal stimulator leads terminating mid thoracic level.
[2018-08-14] MEDS ORDERED: Sodium Chloride 0.9% 1000 ML 1,000 ML ONE (11:18)
[2018-08-14 11:26] LABS: BASOPHIL % 0.6 % (0.0-0.4); Basophil (Absolute #) 0.05 (0-0.4); Eosinophil % 2.8 % (0.00-5.0); Eosinophil (Absolute #) 0.22 (0-0.5); Granulocyte Absolute (ANC) 4.02 (1.4-6.9); Granulocytes % 51.3 % (36.0-66.0); Hematocrit 42.5 % (35-47); Hemoglobin 14.1 gm/dl (12.0-16.0); Lymphocyte (Absolute #) 2.33 (1.0-4.6); Lymphocytes % 29.8 % (24.0-44.0); Mean Cell Volume 88.4 fl (78-100); Mean Corpuscular Hemoglobin 29.3 pg (26-32); Mean Corpuscular Hgb Concent. 33.2 g/dl (32-36); Mean Platelet Volume 11.1 fl (6-9.5); Monocyte (Absolute #) 1.21 (0.0-1.3); Monocytes % 15.5 % (0.0-12.0); Platelet Count 317 K/mm3 (150-450); Red Blood Count 4.81 M/mm3 (4.1-5.4); Red Cell Distribution Width 13.3 % (11.5-14.0); White Blood Count 7.8 K/mm3 (4.0-10.5)
[2018-08-14 11:31] LABS: INR 1.18 (0.8-3.0); PROTIME 13.8 SECONDS (9.95-12.35)
[2018-08-14 11:34] LABS: AMYLASE 58 U/L (30-110); LIPASE 96 U/L (23-300); PTT 32.1 SECONDS (25.3-37.0)
[2018-08-14 11:44] LABS: ALBUMIN 4.4 g/dL (3.5-5.0); ALKALINE PHOSPHATASE 136 U/L (38-126); BLOOD UREA NITROGEN 10 mg/dL (7-17); CHLORIDE 108 mmol/L (98-107); Calcium 9.8 mg/dL (8.4-10.2); Carbon Dioxide 25 mmol/L (22-30); Creatinine 1 0.57 mg/dL (0.52-1.04); Glucose 112 mg/dL (74-106); NT PRO BNP 117 pg/mL (0-900); SGOT/AST 24 U/L (14-36); SGPT/ALT 15 U/L (0-35); SODIUM 144 mmol/L (137-145); Total Protein 7.4 g/dL (6.3-8.2)
--- NOTE | 2018-08-14 13:27 | XRAY ---
Indication: Chest pain and short of breath. Elevated d-dimer. Multiple contiguous axial images obtained through the chest using 100 cc Isovue 370 contrast and PE protocol. Comparison: February 14, 2018. There is satisfactory opacification of the pulmonary arteries to include the lobar and segmental branches. Again no filling defect or pulmonary embolus. Heart is not enlarged. Aorta is normal in course and caliber. No pathologic mediastinal/hilar lymphadenopathy. Stable small hiatal hernia. Examination of the lung parenchyma demonstrates new small patchy airspace opacities bilaterally, greatest in the right base. No consolidation or effusion. Bony thorax intact again with mild degenerative changes throughout the spine and new spinal stimulator leads terminating T6-T7 level. Limited upper abdomen again demonstrates fatty liver and cholecystectomy clips. Impression: 1. Again negative pulmonary embolus. 2. New patchy bilateral airspace disease. CT DI 23.68
[2018-08-14] MEDS ORDERED: ROCEPHIN 1 Gm-D5w 50 ml Bag** 1 G/50 ML IVPB IV STA (14:14)
[2018-08-14] MEDS ORDERED: SUBLIMAZE 100 MCG/2 ML IV ONE (14:15)
[2018-08-14] MEDS ORDERED: Zofran 4 MG/2 ML VIAL IV ONE (14:15)
[2018-08-14] MEDS ORDERED: SUBLIMAZE 100 MCG/2 ML ONE (14:22)
[2018-08-14] MEDS ORDERED: Zofran 4 MG/2 ML VIAL ONE (14:22)
[2018-08-14] MEDS ORDERED: ROCEPHIN 1 Gm-D5w 50 ml Bag** 1 G/50 ML IVPB IV ONE (14:23)
[2018-08-14 14:56] VITALS: PULSE 97; O2SAT 98
[2018-08-14 16:00] VITALS: BP 129/72
== END 2018-08-14 16:15 | disposition home or self-care (01) ==
LOC: ED 10:30
DX: R07.89 Other chest pain (principal); J18.9 Pneumonia, unspecified organism; Z86.73 Personal history of transient ischemic attack (TIA), and cerebral infarction without residual deficits; I50.9 Heart failure, unspecified; J45.909 Unspecified asthma, uncomplicated; E10.8 Type 1 diabetes mellitus with unspecified complications; M79.7 Fibromyalgia; I25.10 Atherosclerotic heart disease of native coronary artery without angina pectoris; J44.9 Chronic obstructive pulmonary disease, unspecified; K50.90 Crohn's disease, unspecified, without complications; Z79.899 Other long term (current) drug therapy
CPT/HCPCS: 36415; 71045; 71260; 80053; 82150; 83690; 83880; 84484; 85025; 85379; 85610; 85730; 87040; 93005; 93041; 96360; 96361; 96365; 96374; 96375; 99285; J0696; J2405; J3010; A9270-GY

== ENCOUNTER 2018-12-01 11:14 | Inpatient (IN) | payer OTHER, MEDICARE ==
[2018-12-01] MEDS ORDERED: Zofran 4 MG/2 ML VIAL IV ONE ×3 (11:49→18:15)
[2018-12-01] MEDS ORDERED: Hydromorphone 1 mg/ml Ampule IV ONE (11:49)
[2018-12-01] MEDS ORDERED: Zofran 4 MG/2 ML VIAL ONE (11:57)
[2018-12-01] MEDS ORDERED: Hydromorphone 1 mg/ml Ampule ONE (11:58)
--- NOTE | 2018-12-01 11:59 | ERPHSYRPT ---
- History of Present Illness Time Seen by Provider: 12/01/18 11:55 Historian: patient Exam Limitations: clinical condition Patient Subjective Stated Complaint: was diagnosed with diverticulitis 4 days ago by criminal legal assistant in . is not feeling any better. pain in LLQ. nauseated and unable to eat. Triage Nursing Assessment: alert and oriented. c/o pain to her LLQ. nausea and unable to eat. seen by gastro in 4 days ago and given meds. just not feeling better. has had fever. abdomen soft and tender. nausea with no vomiting. Physician History: PATIENT WITH A HISTORY OF COPD,CHF, FIBROMYALGIA, CROHNS, DIVERTICULITIS, RECENTLY TREATED BY HER GASTROENTROLOGIST OVER THE PAST 4 DAYS WITH ANTIBIOTICS BACTRIM AND FLAGYL COMPLAINS OF INCREASING PAIN RIGHT LOWER ABDOMEN, LOW GRADE FEVER AND NAUSEA WITH DRY HEAVES. Timing/Duration: day(s), worse Activities at Onset: none Quality: cramping, throbbing Abdominal Pain Onset Location: RLQ Pain Radiation: no radiation Severity of Pain-Max: moderate Severity of Pain-Current: moderate Modifying Factors: Improves With: nothing Associated Symptoms: nausea, vomiting, weakness Previous symptoms: same symptoms as today Allergies/Adverse Reactions: codeine Allergy (Intermediate, Verified 11/12/17 21:17) morphine Allergy (Intermediate, Verified 11/12/17 21:17) povidone-iodine [From Betadine] Allergy (Intermediate, Verified 11/12/17 21:17) soap [From Betadine] Allergy (Intermediate, Verified 11/12/17 21:17) adhesive Adverse Reaction (Verified 11/12/17 21:17) Home Medications: Leflunomide [Arava] 20 mg PO DAILY 09/22/15 [History] Metoprolol Succinate 25 mg Xl* [Toprol-Xl 25MG Tablets] 25 mg PO QAM [History] Dulaglutide [Trulicity] 0.75 mg SQ WEEKLY 02/11/17 [History] Eslicarbazepine Acetate [Aptiom] 600 mg PO DAILY 11/12/17 [History] Insulin Lispro [Humalog] 1 unit IM DAILY 11/12/17 [History] Methimazole [Tapazole] 2 tab PO DAILY 11/12/17 [History] Pregabalin [Lyrica 150Mg] 150 mg PO BID 11/12/17 [History] Primidone 50 MG [Mysoline 50Mg] 0.25 tab PO DAILY 11/12/17 [History] Escitalopram Oxalate [Lexapro] 10 mg PO DAILY 08/14/18 [History] Hx Tetanus, Diphtheria Vaccination/Date Given: Yes Hx Influenza Vaccination/Date Given: No Hx Pneumococcal Vaccination/Date Given: Yes - Review of Systems Constitutional: No Fever, No Chills Eyes: No Symptoms Ears, Nose, & Throat: No Symptoms Respiratory: No Symptoms, No Cough, No Dyspnea Cardiac: No Symptoms, No Chest Pain, No Edema, No Syncope Abdominal/Gastrointestinal: Abdominal Pain, Nausea, Vomiting, No Diarrhea Genitourinary Symptoms: No Symptoms, No Dysuria Musculoskeletal: No Symptoms, No Back Pain, No Neck Pain Skin: No Symptoms, No Rash Neurological: No Symptoms, No Dizziness, No Focal Weakness, No Sensory Changes Psychological: No Symptoms Endocrine: No Symptoms All Other Systems: Reviewed and Negative - Past Medical History Pertinent Past Medical History: Yes Neurological History: Stroke ENT History: Cataracts Cardiac History: Congestive Heart Failure, Coronary Artery Disease, Other Respiratory History: Asthma, COPD, Pneumonia Endocrine Medical History: Diabetes Type I Musculoskeletal History: Fibromyalgia, Other GI Medical History: Crohns Disease, Diverticulosis History: No Pertinent History Psycho-Social History: No Pertinent History Female Reproductive Disorders: No Pertinent History Other Medical History: Tachycardia. Mixed connective tissue disease. RA/lupus - Past Surgical History Past Surgical History: Yes Neuro Surgical History: No Pertinent History Cardiac: Cardiac Catheterization Respiratory: No Pertinent History Gastrointestinal: Appendectomy, Cholecystectomy, Other Genitourinary: No Pertinent History Musculoskeletal: Orthopedic Surgery, Other Female Surgical History: Hysterectomy, Lumpectomy Other Surgical History: bev fundoplasty, knee scopes. rods in spine. SI fused. left breast lumpectomy - Social History Smoking Status: Never smoker Exposure to second hand smoke: No Alcohol Use: Socially Drug Use: none Patient Lives Alone: No Significant Family History: no pertinent family hx - Nursing Vital Signs Nursing Vital Signs: Initial Vital Signs Temperature 98.9 F 12/01/18 11:40 Pulse Rate 90 12/01/18 11:40 Respiratory Rate 18 12/01/18 11:40 Blood Pressure 114/79 12/01/18 11:40 O2 Sat by Pulse Oximetry 96 12/01/18 11:40 Pain Scale Pain Intensity 7 - Physical Exam General Appearance: no apparent distress, alert Eye Exam: PERRL/EOMI, eyes nml inspection Ears, Nose, Throat Exam: normal ENT inspection, pharynx normal, moist mucous membranes Neck Exam: normal inspection, non-tender, supple, full range of motion Respiratory Exam: normal breath sounds, lungs clear, No respiratory distress Cardiovascular Exam: regular rate/rhythm, normal heart sounds Gastrointestinal/Abdomen Exam: soft, normal bowel sounds, tenderness (RIGHT LOWER QUAD TENDERNESS, NO GUARDING OR PALPABLE MASSES), No mass Back Exam: normal inspection, normal range of motion, No CVA tenderness, No vertebral tenderness Extremity Exam: normal inspection, normal range of motion, pelvis stable Neurologic Exam: alert, oriented x 3, cooperative, normal mood/affect, nml cerebellar function, sensation nml, No motor deficits Skin Exam: normal color, warm, dry SpO2: 96 - CT Exams Abdomen/Pelvis CT Interpretation: Discussed w/radiologist (NEW MINIMAL PROXIMAL SIGMOID DIVERTICULITIS) Ordered Tests: Active Orders 24 hr Category Date Time Status IV Insertion STAT Care 12/01/18 11:49 Active ABDOMEN AND PELVIS W/0 CONTRAS [CT] Stat Exams 12/01/18 11:50 Completed AMYLASE Stat Lab 12/01/18 11:50 Completed BLOOD CULTURE Stat Lab 12/01/18 12:15 Received CBC W DIFF Stat Lab 12/01/18 11:50 Completed CMP Stat Lab 12/01/18 11:50 Completed CULTURE,URINE Stat Lab 12/01/18 11:45 Received LIPASE Stat Lab 12/01/18 11:50 Completed MAGNESIUM Stat Lab 12/01/18 11:50 Completed Manual Differential NC Stat Lab 12/01/18 11:50 Completed UA W/RFX UR CULTURE Stat Lab 12/01/18 11:45 Completed Medication Summary Generic Name Dose Route Start Last Admin Trade Name Freq PRN Reason Stop Dose Admin Sodium Chloride 1,000 mls @ 100 mls/hr 12/01/18 12:00 12/01/18 12:01 Sodium Chloride 0.9% 1000 Ml IV 12/31/18 11:59 100 mls/hr .Q10H ZEENAT Administration Levofloxacin/Dextrose 500 mg in 100 mls @ 100 mls/hr 12/01/18 12:35 12/01/18 12:55 Levofloxacin 500mg/100ml D5w IV 12/01/18 13:34 100 ml/hr STAT STA 100 mls/hr Administration Discontinued Medications Generic Name Dose Route Start Last Admin Trade Name Elizabeth PRN Reason Stop Dose Admin Hydromorphone HCl 1 mg 12/01/18 11:49 12/01/18 12:02 Hydromorphone 1 Mg/Ml Ampule IV 12/01/18 11:50 1 mg STAT ONE Administration Hydromorphone HCl Confirm 12/01/18 11:58 Hydromorphone 1 Mg/Ml Ampule Administered 12/01/18 11:59 Dose 1 mg .ROUTE .STK-MED ONE Levofloxacin/Dextrose Confirm 12/01/18 12:54 Levofloxacin 500mg/100ml D5w Administered 12/01/18 12:55 Dose 500 mg in 100 mls @ ud IV .STK-MED ONE Ondansetron HCl 4 mg 12/01/18 11:49 12/01/18 12:02 Zofran 4 Mg/2 Ml Vial IV 12/01/18 11:50 4 mg STAT ONE Administration Ondansetron HCl Confirm 12/01/18 11:57 Zofran 4 Mg/2 Ml Vial Administered 12/01/18 11:58 Dose 4 mg .ROUTE .STK-MED ONE Lab/Rad Data: Laboratory Result Diagrams 12/01/18 11:50 12/01/18 11:50 Laboratory Results 12/01/18 12/01/18 12/01/18 Range/Units 11:50 11:50 11:45 WBC 14.4 H (4.0-10.5) K/mm3 RBC 5.24 (4.1-5.4) M/mm3 Hgb 15.5 (12.0-16.0) gm/dl Hct 46.9 (35-47) % MCV 89.5 (78-100) fl MCH 29.6 (26-32) pg MCHC 33.0 (32-36) g/dl RDW 14.9 H (11.5-14.0) % Plt Count 382 (150-450) K/mm3 MPV 10.3 H (6-9.5) fl Segmented Neutrophils 69 H (36.0-66.0) % Band Neutrophils 1 (0.0-2.0) % Lymphocytes (Manual) 22 L (24-44) % Monocytes (Manual) 7 (0.0-12.0) % Eosinophils (Manual) 1 (0.00-3.0) % Platelet Estimate NORMAL (NORMAL) RBC Morphology NORMAL Sodium 141 (137-145) mmol/L Potassium 3.9 (3.5-5.1) mmol/L Chloride 104 (98-107) mmol/L Carbon Dioxide 26 (22-30) mmol/L Anion Gap 14.2 (5-15) MEQ/L BUN 18 H (7-17) mg/dL Creatinine 0.89 (0.52-1.04) mg/dL Estimated GFR > 60.0 ML/MIN Glucose 127 H (74-106) mg/dL Calcium 9.9 (8.4-10.2) mg/dL Magnesium 2.0 (1.6-2.3) mg/dL Total Bilirubin 0.40 (0.2-1.3) mg/dL AST 23 (14-36) U/L ALT 20 (0-35) U/L Alkaline Phosphatase 121 (38-126) U/L Serum Total Protein 7.5 (6.3-8.2) g/dL Albumin 4.5 (3.5-5.0) g/dL Amylase 78 (30-110) U/L Lipase 114 (23-300) U/L Urine Color YELLOW (YELLOW) Urine Appearance SLIGHTLY CLOUDY (CLEAR) Urine pH 6.0 (5-6) Ur Specific [place] 1.024 (1.005-1.025) Urine Protein 30 (Negative) Urine Ketones NEGATIVE (NEGATIVE) Urine Blood NEGATIVE (0-5) Pawel/ul Urine Nitrite NEGATIVE (NEGATIVE) Urine Bilirubin NEGATIVE (NEGATIVE) Urine Urobilinogen NEGATIVE (0-1) mg/dL Ur Leukocyte Esterase TRACE (NEGATIVE) Urine WBC (Auto) 11-15 (0-5) /HPF Urine RBC (Auto) 3-5 (0-2) /HPF U Epithel Cells (Auto) FEW (FEW) /HPF Urine Bacteria (Auto) FEW (NEGATIVE) /HPF Urine Mucus (Auto) SLIGHT (NEGATIVE) /HPF Urine Culture Reflexed YES (NO) Urine Glucose NEGATIVE (NEGATIVE) mg/dL - Progress Progress Note: 12/01/18 12:04 IV NORMAL SALINE 100ML/HR, ZOFRAN 4MG, DILAUDID 1MG IV 12/01/18 13:16, AFTER 2 SETS OF BLOOD CULTURES ADMINISTERED LEVAQUIN 500MG IVPB Discussed with Dr.: Other (DISCUSSED WITH DR LUGO AT 1320 FOR OBSERVATION) - Departure Departure Disposition: Observation Clinical Impression: ACUTE SIGMOID DIVERTICULITIS, URINARY TRACT INFECTION Condition: Stable Critical Care Time: No Referrals: PAULETTE SALAZAR [Primary Care Provider] -
[2018-12-01] MEDS ORDERED: Sodium Chloride 0.9% 1000 ML 1,000 ML IV SCH ×2 (12:00→13:30)
[2018-12-01 12:03] LABS: Appearance SLIGHTLY CLOUDY (CLEAR); Bacteria FEW /HPF (NEGATIVE); Bilirubin NEGATIVE (NEGATIVE); Blood NEGATIVE Ery/ul (0-5); Epithelial Cells FEW /HPF (FEW); Glucose NEGATIVE (NEGATIVE); Ketones NEGATIVE (NEGATIVE); Leukocyte Esterase TRACE (NEGATIVE); Mucus SLIGHT /HPF (NEGATIVE); Nitrite NEGATIVE (NEGATIVE); Protein,Urine Dip 30 (Negative); Specific Gravity 1.024 (1.005-1.025); Urobilinogen NEGATIVE mg/dL (0-1)
[2018-12-01 12:03] LABS: Hematocrit 46.9 % (35-47); Hemoglobin 15.5 gm/dl (12.0-16.0); Mean Cell Volume 89.5 fl (78-100); Mean Corpuscular Hemoglobin 29.6 pg (26-32); Mean Platelet Volume 10.3 fl (6-9.5); Platelet Count 382 K/mm3 (150-450); Red Blood Count 5.24 M/mm3 (4.1-5.4); Red Cell Distribution Width 14.9 % (11.5-14.0); White Blood Count 14.4 K/mm3 (4.0-10.5)
[2018-12-01 12:05] LABS: ALBUMIN 4.5 g/dL (3.5-5.0); ALKALINE PHOSPHATASE 121 U/L (38-126); AMYLASE 78 U/L (30-110); ANION GAP 14.2 MEQ/L (5-15); BLOOD UREA NITROGEN 18 mg/dL (7-17); CHLORIDE 104 mmol/L (98-107); Calcium 9.9 mg/dL (8.4-10.2); Carbon Dioxide 26 mmol/L (22-30); Creatinine 1 0.89 mg/dL (0.52-1.04); Glucose 127 mg/dL (74-106); LIPASE 114 U/L (23-300); Potassium 3.9 mmol/L (3.5-5.1); SGOT/AST 23 U/L (14-36); SGPT/ALT 20 U/L (0-35); SODIUM 141 mmol/L (137-145); Total Protein 7.5 g/dL (6.3-8.2)
[2018-12-01 12:26] LABS: BAND 1 % (0.0-2.0); Eosinophil 1 % (0.00-3.0); Lymphocytes 22 % (24-44); Monocyte 7 % (0.0-12.0); Neutrophils 69 % (36.0-66.0); Platelet Estimate NORMAL (NORMAL); Total Cells Counted 100
[2018-12-01] MEDS ORDERED: Levofloxacin 500MG/100ML D5W 500 MG/100 ML BAG IV STA (12:35)
[2018-12-01] MEDS ORDERED: Levofloxacin 500MG/100ML D5W 500 MG/100 ML BAG IV ONE (12:54)
--- NOTE | 2018-12-01 13:09 | XRAY ---
Indication: Mid to lower abdominal pain. History diverticulosis. Multiple contiguous axial images obtained through the abdomen and pelvis without contrast as ordered. Comparison: January 11, 2017. Lung bases remain clear. Heart is not enlarged. Stable small hiatal hernia and calcified nodes at the GE junction. Lumbosacral fusion hardware and right SI orthopedic hardware again produces beam artifact. Noncontrasted stomach and bowel loops again appear nonobstructed. There remains mild diffuse scattered colonic diverticulosis. Proximal sigmoid colon now demonstrates very minimal focus of pericolonic stranding posteriorly, possible diverticulitis. No free fluid/air. Again appendectomy, cholecystectomy, and hysterectomy. Remaining liver, pancreas, spleen, adrenal glands, kidneys, ureters, bladder, and aorta appear unremarkable for noncontrast exam. Osseous structures intact again with moderate degenerative changes throughout the thoracolumbar spine and remote L2 superior endplate fracture. New left back spinal stimulator device with spinal leads directed superiorly into the thoracic spine. Impression: 1. Again colonic diverticulosis. Query new minimal diverticulitis in the proximal sigmoid colon. 2. New left back spinal stimulator device and leads. 3. Stable hiatal hernia. CT DI 23.65
[2018-12-01] MEDS: DILAUDID 2 MG INJECTION IV PRN (16:32)
[2018-12-01] MEDS ORDERED: PROTONIX 40 MG IV IV SCH (17:00)
[2018-12-01] MEDS ORDERED: ZOFRAN ODT 4 MG PO PRN (17:13)
[2018-12-01] MEDS ORDERED: NON-FORMULARY ITEM (Dulaglutide [Trulicity] 0.75 MG) SQ SCH (17:15)
[2018-12-01] MEDS ORDERED: MEDICATION INTERVENTION PO SCH (17:30)
[2018-12-01] MEDS: FLAGYL 500 MG IVPB 500 MG/100 ML BAG IV SCH ×2 (17:42→23:39)
[2018-12-01] MEDS ORDERED: Protonix 40MG Tablet PO SCH (18:00)
[2018-12-01] MEDS ORDERED: NovoLOG Insulin SQ PRN (18:14)
[2018-12-01 19:43] LABS: Folate (Folic Acid) > 20.0 ng/mL (2.76 - >20); Vitamin B12 361 pg/mL (239-931)
[2018-12-01] MEDS: LYRICA 150MG PO SCH (21:17)
[2018-12-01] MEDS: PATIENT OWN MEDICATION PO SCH (21:18)
[2018-12-01] MEDS ORDERED: ESLICARBAZEPINE ACETATE PO SCH (22:00)
[2018-12-01] MEDS ORDERED: METHIMAZOLE PO SCH (22:00)
[2018-12-01] MEDS ORDERED: NON-FORMULARY ITEM (Fluticasone/Vilanterol [Breo Ellipta 200-25 Mcg Inh] 1 PUFF) IH SCH (22:00)
[2018-12-01] MEDS ORDERED: LYRICA 150MG PO SCH (22:00)
[2018-12-01] MEDS ORDERED: LEFLUNOMIDE 20 MG PO SCH (22:00)
[2018-12-02] MEDS: FLAGYL 500 MG IVPB 500 MG/100 ML BAG IV SCH ×3 (06:04→17:36)
[2018-12-02] MEDS: LYRICA 150MG PO SCH ×2 (09:08→21:44)
[2018-12-02] MEDS: Levofloxacin 500MG/100ML D5W 500 MG/100 ML BAG IV SCH (09:08)
[2018-12-02] MEDS ORDERED: Toprol Xl 50 MG PO SCH (10:00)
[2018-12-02] MEDS: Zofran 4 MG/2 ML VIAL IV PRN (10:29)
[2018-12-02 12:06] LABS: Hematocrit 41.3 % (35-47); Hemoglobin 13.5 gm/dl (12.0-16.0); Mean Cell Volume 90.8 fl (78-100); Mean Corpuscular Hemoglobin 29.7 pg (26-32); Mean Corpuscular Hgb Concent. 32.7 g/dl (32-36); Mean Platelet Volume 9.9 fl (6-9.5); Platelet Count 311 K/mm3 (150-450); Red Blood Count 4.55 M/mm3 (4.1-5.4); Red Cell Distribution Width 14.6 % (11.5-14.0); White Blood Count 10.4 K/mm3 (4.0-10.5)
[2018-12-02 12:07] LABS: ALBUMIN 3.5 g/dL (3.5-5.0); ALKALINE PHOSPHATASE 83 U/L (38-126); ANION GAP 14.2 MEQ/L (5-15); BLOOD UREA NITROGEN 14 mg/dL (7-17); CHLORIDE 105 mmol/L (98-107); Carbon Dioxide 25 mmol/L (22-30); Creatinine 1 0.76 mg/dL (0.52-1.04); Glucose 96 mg/dL (74-106); Potassium 3.7 mmol/L (3.5-5.1); SGOT/AST 20 U/L (14-36); SGPT/ALT 17 U/L (0-35); SODIUM 140 mmol/L (137-145); Total Protein 6.1 g/dL (6.3-8.2)
[2018-12-02] MEDS ORDERED: Cyanocobalamin B-12 1000 MCG/ML IM ONE ×2 (12:29→15:00)
[2018-12-02] MEDS ORDERED: Diflucan 100 MG PO SCH (12:30)
[2018-12-02 12:46] LABS: BAND 1 % (0.0-2.0); Eosinophil 5 % (0.00-3.0); Lymphocytes 31 % (24-44); Monocyte 9 % (0.0-12.0); Neutrophils 54 % (36.0-66.0); Platelet Estimate NORMAL (NORMAL); Total Cells Counted 100
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
[2018-12-02] MEDS: PATIENT OWN MEDICATION PO SCH (21:44)
[2018-12-02] MEDS: Sodium Chloride 0.9% 10 ML FLUSH Syringe IV SCH (21:45)
[2018-12-03] MEDS: FLAGYL 500 MG IVPB 500 MG/100 ML BAG IV SCH ×3 (00:48→12:44)
[2018-12-03 06:12] LABS: Hematocrit 40.4 % (35-47); Hemoglobin 13.2 gm/dl (12.0-16.0); Mean Corpuscular Hemoglobin 29.7 pg (26-32); Mean Corpuscular Hgb Concent. 32.7 g/dl (32-36); Mean Platelet Volume 10.1 fl (6-9.5); Platelet Count 323 K/mm3 (150-450); Red Blood Count 4.44 M/mm3 (4.1-5.4); Red Cell Distribution Width 14.5 % (11.5-14.0); White Blood Count 11.6 K/mm3 (4.0-10.5)
[2018-12-03] MEDS: Sodium Chloride 0.9% 10 ML FLUSH Syringe IV SCH ×3 (06:23→21:52)
[2018-12-03 06:35] LABS: ALBUMIN 3.5 g/dL (3.5-5.0); ALKALINE PHOSPHATASE 83 U/L (38-126); ANION GAP 12.3 MEQ/L (5-15); BLOOD UREA NITROGEN 17 mg/dL (7-17); CHLORIDE 106 mmol/L (98-107); Calcium 8.9 mg/dL (8.4-10.2); Carbon Dioxide 26 mmol/L (22-30); Creatinine 1 0.75 mg/dL (0.52-1.04); Glucose 107 mg/dL (74-106); Potassium 3.9 mmol/L (3.5-5.1); SGOT/AST 16 U/L (14-36); SGPT/ALT 15 U/L (0-35); SODIUM 141 mmol/L (137-145); Total Protein 6.1 g/dL (6.3-8.2)
[2018-12-03 07:39] LABS: BAND 2 % (0.0-2.0); Eosinophil 4 % (0.00-3.0); Lymphocytes 25 % (24-44); Monocyte 7 % (0.0-12.0); Neutrophils 62 % (36.0-66.0); Platelet Estimate NORMAL (NORMAL); Total Cells Counted 100
[2018-12-03] MEDS: Levofloxacin 500MG/100ML D5W 500 MG/100 ML BAG IV SCH (10:05)
[2018-12-03] MEDS: LYRICA 150MG PO SCH ×2 (10:05→21:41)
[2018-12-03] MEDS ORDERED: Duragesic 25MCG Patch TD SCH ×2 (15:00→15:30)
[2018-12-03] MEDS ORDERED: VANCOMYCIN 25MG/ML ORAL SOLUTION COMPOUND KIT ONE (17:17)
[2018-12-03] MEDS ORDERED: Vancomycin 1GM/ Ns 250ML*** 250 ML IV ONE (17:20)
[2018-12-03] MEDS: VANCOCIN 1 GM VIAL*** 1 GM in Sodium Chloride 0.9% 250 ML 250 ML IV SCH (17:22)
[2018-12-03] MEDS: PATIENT OWN MEDICATION PO SCH (21:43)
--- NOTE | 2018-12-03 22:34 | PCM.NOTE ---
Date and Time: 12/03/182208 Subjective Assessment: Patient says her abdominal pain is better but is still feeling tired and foggy headed. States suffers from chronic headaches and has headache now left frontal area. RA pain hurting especially in her hands today. Has been off Prednisone for 2-3 weeks ,had been on 10 mg daily. Has hardware in lumbar sacral spine and a spinal cord stimulator that does not help much. Is on Fentanyl patch 25mg it was due to be changed on the . Objective Exam General Appearance: mild distress, lethargy, obese Neurologic Exam: alert, oriented x 3 Skin Exam: pale Eye Exam: photophobia, other (periorbital edema) Respiratory Exam: normal breath sounds Cardiovascular Exam: regular rate/rhythm (no murmur) Gastrointestinal/Abdomen Exam: soft, normal bowel sounds, tenderness (RUQ and along transverse cololn) Extremity Exam: other Comments: 12/04/18 07:46 Blood culture from admission grew gram positive cocci in clusters, one bottle. OBJECTIVE DATA Vital Signs: Vital Signs - 24 hr Temp Pulse Resp BP Pulse Ox 12/03/18 19:34 98.7 F 86 18 109/61 94 L 12/03/18 19:29 96 12/03/18 16:00 98.8 F 86 18 111/62 97 12/03/18 12:00 98.6 F 88 18 100/54 96 12/03/18 07:32 98.4 F 66 18 137/58 95 12/03/18 06:54 92 L 12/03/18 04:00 97.7 F 74 18 114/61 98 12/02/18 23:48 98.3 F 76 20 94/65 96 Pain Assessment - Last Documented Pain Intensity 5 Pain Scale Used 0-10 Pain Scale Intake and Output: Intake & Output 12/01/18 12/02/18 12/03/18 12/04/18 11:59 11:59 11:59 11:59 Intake Total 1778 3314 1180 Output Total 7377 147 6588 Balance 178 3164 -770 Weight 89.811 kg 93 kg Lab Results: Accuchecks Date 12/03/18 Date 12/03/18 Date 12/03/18 Time 16:30 Time 11:30 Time 07:30 Accucheck Value: 108 Accucheck Value: 119 Accucheck Value: 120 Lab Results-Last 24 Hours 12/03/18 12/03/18 Range/Units 05:15 05:15 WBC 11.6 H (4.0-10.5) K/mm3 RBC 4.44 (4.1-5.4) M/mm3 Hgb 13.2 (12.0-16.0) gm/dl Hct 40.4 (35-47) % MCV 91.0 (78-100) fl MCH 29.7 (26-32) pg MCHC 32.7 (32-36) g/dl RDW 14.5 H (11.5-14.0) % Plt Count 323 (150-450) K/mm3 MPV 10.1 H (6-9.5) fl Segmented Neutrophils 62 (36.0-66.0) % Band Neutrophils 2 (0.0-2.0) % Lymphocytes (Manual) 25 (24-44) % Monocytes (Manual) 7 (0.0-12.0) % Eosinophils (Manual) 4 H (0.00-3.0) % Platelet Estimate NORMAL (NORMAL) RBC Morphology NORMAL Sodium 141 (137-145) mmol/L Potassium 3.9 (3.5-5.1) mmol/L Chloride 106 (98-107) mmol/L Carbon Dioxide 26 (22-30) mmol/L Anion Gap 12.3 (5-15) MEQ/L BUN 17 (7-17) mg/dL Creatinine 0.75 (0.52-1.04) mg/dL Estimated GFR > 60.0 ML/MIN Glucose 107 H (74-106) mg/dL Calcium 8.9 (8.4-10.2) mg/dL Total Bilirubin 0.30 (0.2-1.3) mg/dL AST 16 (14-36) U/L ALT 15 (0-35) U/L Alkaline Phosphatase 83 (38-126) U/L Serum Total Protein 6.1 L (6.3-8.2) g/dL Albumin 3.5 (3.5-5.0) g/dL Multi-Disciplinary Progress Notes: Multi-Disciplinary Progress Notes 12/03/18 15:15 Pharmacy Note by Lamin Jang Please be aware of possible drug interaction with Duragesic and Diflucan. May increase Fentanyl level. Initialized on 12/03/18 15:15 - END OF NOTE Assessment/Plan (1) Enteritis Current Visit: Yes Status: Acute Assessment & Plan: regional hepatic flecture and transverse colon Code(s): K52.9 - NONINFECTIVE GASTROENTERITIS AND COLITIS, UNSPECIFIED (2) Positive blood culture Current Visit: Yes Status: Acute Assessment & Plan: start IV Vancomycin,D/C metranidazole and Levaquin. Await ID and sensitivity reports Code(s): R78.81 - BACTEREMIA (3) Chronic low back pain Current Visit: Yes Status: Chronic Code(s): M54.5 - LOW BACK PAIN; G89.29 - OTHER CHRONIC PAIN (4) Hyperthyroidism Current Visit: Yes Status: Resolved Assessment & Plan: continue off Tapazole and watch TSH as outpatient Code(s): E05.90 - THYROTOXICOSIS, UNSP WITHOUT THYROTOXIC CRISIS OR STORM
[2018-12-04] MEDS: DILAUDID 2 MG INJECTION IV PRN (00:28)
[2018-12-04] MEDS ORDERED: Vancomycin 1GM/ Ns 250ML*** 250 ML IV ONE (05:56)
[2018-12-04] MEDS: VANCOCIN 1 GM VIAL*** 1 GM in Sodium Chloride 0.9% 250 ML 250 ML IV SCH (05:59)
[2018-12-04] MEDS: Sodium Chloride 0.9% 10 ML FLUSH Syringe IV SCH ×3 (06:04→21:21)
--- NOTE | 2018-12-04 08:58 | PCM.NOTE ---
Date and Time: 12/04/18 0850 Subjective Assessment: Patient reports some nausea this AM when they woke her up to give the vancomcyin. Blood culture now growing coag neg staph so most likely contaminant. Pharmacist, Mervin Shanks, states patient was on levofloxacin until yesterday and metronidazole until yesterday. Patient reports her Crohn's disease has never been active. She sees GI, Dr. Nguyen and had been on outpatient antibiotics. She ate yesterday but has no appetite today and had to have a dose of IV zofran. She reports she had colonoscopy June and upper endoscopy in June too. She reports her abdominal pain is in the right upper quadrant mostly. Hx of cholecystectomy in past. - Review of Systems Constitutional: No Symptoms Eyes: No Symptoms Ears, Nose, & Throat: No Symptoms Respiratory: No Symptoms Cardiac: No Symptoms Abdominal/Gastrointestinal: Abdominal Pain Objective Exam General Appearance: no apparent distress Neurologic Exam: alert, cooperative, normal mood/affect Skin Exam: normal color, warm, dry Cardiovascular Exam: regular rate/rhythm, normal heart sounds, No murmur, No friction rub, No gallop Gastrointestinal/Abdomen Exam: soft, normal bowel sounds, No tenderness, No distention, No mass Extremity Exam: normal inspection, other (no c/c/e) OBJECTIVE DATA Vital Signs: Vital Signs - 24 hr Temp Pulse Resp BP Pulse Ox 12/04/18 07:29 98.4 F 94 H 20 141/62 94 L 12/04/18 06:39 97 12/04/18 03:57 97.7 F 85 18 122/59 98 12/03/18 23:12 98.5 F 90 18 101/61 95 12/03/18 19:34 98.7 F 86 18 109/61 94 L 12/03/18 19:29 96 12/03/18 16:00 98.8 F 86 18 111/62 97 12/03/18 12:00 98.6 F 88 18 100/54 96 Pain Assessment - Last Documented Pain Intensity 6 Pain Scale Used [facility] Intake and Output: Intake & Output 12/02/18 12/03/18 12/04/18 12/05/18 06:59 06:59 06:59 06:59 Intake Total 1658 3194 2240 240 Output Total 2867 011 4285 300 Balance 58 2244 -310 -60 Weight 93 kg Lab Results: Accuchecks Date 12/03/18 Date 12/03/18 Date 12/03/18 Time 21:00 Time 16:30 Time 11:30 Accucheck Value: 170 Accucheck Value: 108 Accucheck Value: 119 Multi-Disciplinary Progress Notes: Multi-Disciplinary Progress Notes 12/03/18 15:15 Pharmacy Note by Lamin Jang Please be aware of possible drug interaction with Duragesic and Diflucan. May increase Fentanyl level. Initialized on 12/03/18 15:15 - END OF NOTE Assessment/Plan (1) Diverticulitis Current Visit: No Status: Acute Assessment & Plan: Will restart levofloxcin and metronidazole. May go home later today if able to take food by mouth. Code(s): K57.92 - DVTRCLI OF INTEST, PART UNSP, W/O PERF OR ABSCESS W/O BLEED (2) Crohn disease Current Visit: Yes Status: Acute Assessment & Plan: In remission per patient. Will follow up with her bilingual customer service as outpatient. Code(s): K50.90 - CROHN'S DISEASE, UNSPECIFIED, WITHOUT COMPLICATIONS (3) Diarrhea Current Visit: Yes Status: Acute Assessment & Plan: Check C. diff. Code(s): R19.7 - DIARRHEA, UNSPECIFIED (4) Positive blood culture Current Visit: Yes Status: Acute Assessment & Plan: Most likely contaminant. Will stop Vancomycin. Code(s): R78.81 - BACTEREMIA
[2018-12-04] MEDS: Levofloxacin 500MG/100ML D5W 500 MG/100 ML BAG IV SCH (09:38)
[2018-12-04] MEDS: LYRICA 150MG PO SCH ×2 (09:45→21:19)
[2018-12-04 10:51] LABS: ALBUMIN 3.5 g/dL (3.5-5.0); ALKALINE PHOSPHATASE 95 U/L (38-126); AMYLASE 72 U/L (30-110); ANION GAP 12.8 MEQ/L (5-15); BLOOD UREA NITROGEN 17 mg/dL (7-17); CHLORIDE 106 mmol/L (98-107); Calcium 8.8 mg/dL (8.4-10.2); Carbon Dioxide 27 mmol/L (22-30); Glucose 151 mg/dL (74-106); LIPASE 105 U/L (23-300); Potassium 4.2 mmol/L (3.5-5.1); SGOT/AST 51 U/L (14-36); SGPT/ALT 25 U/L (0-35); SODIUM 141 mmol/L (137-145); Total Protein 6.3 g/dL (6.3-8.2)
[2018-12-04] MEDS: FLAGYL 500 MG IVPB 500 MG/100 ML BAG IV SCH ×3 (11:32→23:58)
[2018-12-04 13:08] LABS: 027 TOX PROD PRESUMPTIVE NEGATIVE (NEGATIVE); TOXIGENIC C. DIFF ORG NEGATIVE (NEGATIVE)
[2018-12-04] MEDS: Zofran 4 MG/2 ML VIAL IV PRN (18:08)
[2018-12-04] MEDS: TYLENOL 325 MG PO PRN (20:31)
[2018-12-04] MEDS: PATIENT OWN MEDICATION PO SCH (21:20)
[2018-12-05] MEDS: DILAUDID 2 MG INJECTION IV PRN (01:19)
[2018-12-05] MEDS: TYLENOL 325 MG PO PRN (05:27)
[2018-12-05] MEDS: FLAGYL 500 MG IVPB 500 MG/100 ML BAG IV SCH ×4 (05:28→23:23)
[2018-12-05 05:38] LABS: Hematocrit 43.1 % (35-47); Hemoglobin 14.3 gm/dl (12.0-16.0); Mean Cell Volume 89.6 fl (78-100); Mean Corpuscular Hemoglobin 29.7 pg (26-32); Mean Corpuscular Hgb Concent. 33.2 g/dl (32-36); Mean Platelet Volume 10.2 fl (6-9.5); Platelet Count 276 K/mm3 (150-450); Red Blood Count 4.81 M/mm3 (4.1-5.4); Red Cell Distribution Width 14.6 % (11.5-14.0); White Blood Count 8.6 K/mm3 (4.0-10.5)
[2018-12-05 07:23] LABS: BAND 2 % (0.0-2.0); Eosinophil 2 % (0.00-3.0); Lymphocytes 20 % (24-44); Monocyte 4 % (0.0-12.0); Neutrophils 72 % (36.0-66.0); Platelet Estimate NORMAL (NORMAL); Total Cells Counted 100
[2018-12-05] MEDS: Zofran 4 MG/2 ML VIAL IV PRN (07:58)
[2018-12-05] MEDS: LYRICA 150MG PO SCH ×2 (10:22→21:12)
[2018-12-05] MEDS: Sodium Chloride 0.9% 10 ML FLUSH Syringe IV SCH ×4 (10:23→21:13)
[2018-12-05] MEDS: Levofloxacin 500MG/100ML D5W 500 MG/100 ML BAG IV SCH (10:23)
[2018-12-05] MEDS ORDERED: Phenergan 25 MG INJ IV SCH (13:00)
--- NOTE | 2018-12-05 13:05 | PCM.NOTE ---
Date and Time: 12/05/18 8906 Subjective Assessment: Patient is seen today with her at the bedside. She has had worsening of her abdominal pain today upper abdomen and left mid lower abd. Nausea continues and was worse after eating a piece of toast this morning.Left maxillary and frontal area headache. Objective Exam General Appearance: moderate distress, lethargy, other (TMax 102.3 yesrterday evening) Neurologic Exam: oriented x 3 Skin Exam: pale Eye Exam: PERRL, EOMI Ears, Nose, Throat Exam: moist mucous membranes, other (DNS, tender left maxillary and frontal sinuses) Respiratory Exam: normal breath sounds Cardiovascular Exam: regular rate/rhythm, other (no murmur appreciated but patient states she has Hx heart murmur) Gastrointestinal/Abdomen Exam: soft (increased BS across mid abdomen,distended 1 +/4, tender 2+/4 RUQ across upper abdomen and LLQ no guarding no rebound.) OBJECTIVE DATA Vital Signs: Vital Signs - 24 hr Temp Pulse Resp BP Pulse Ox 12/05/18 12:00 98.3 F 72 18 104/52 96 12/05/18 07:53 98.5 F 86 18 100/58 94 L 12/05/18 07:25 92 L 12/05/18 04:00 98.6 F 98 H 16 97/56 94 L 12/05/18 01:20 98.4 F 12/05/18 00:00 99.2 F 107 H 18 114/59 94 L 12/04/18 23:25 99.2 F 12/04/18 22:50 101.4 F 12/04/18 21:15 102.3 F 12/04/18 20:00 101.7 F 126 H 18 104/64 90 L 12/04/18 16:00 99 F 110 H 18 114/61 92 L Pain Assessment - Last Documented Pain Intensity 2 Pain Scale [facility] Intake and Output: Intake & Output 12/03/18 12/04/18 12/05/18 12/06/18 11:59 11:59 11:59 11:59 Intake Total 3314 2240 1360 Output Total 950 3200 800 240 Balance 2364 -960 560 -240 Lab Results: Accuchecks Date 12/05/18 Date 12/05/18 Date 12/04/18 Date 12/04/18 Time 11:30 Time 07:30 Time 21:22 Time 16:30 Accucheck Value: 144 Accucheck Value: 122 Accucheck Value: 135 Accucheck Value: 126 Lab Results-Last 24 Hours 12/01/18 12/04/18 12/05/18 Range/Units 11:52 Unknown 05:15 WBC 8.6 (4.0-10.5) K/mm3 RBC 4.81 (4.1-5.4) M/mm3 Hgb 14.3 (12.0-16.0) gm/dl Hct 43.1 (35-47) % MCV 89.6 (78-100) fl MCH 29.7 (26-32) pg MCHC 33.2 (32-36) g/dl RDW 14.6 H (11.5-14.0) % Plt Count 276 (150-450) K/mm3 MPV 10.2 H (6-9.5) fl Segmented Neutrophils 72 H (36.0-66.0) % Band Neutrophils 2 (0.0-2.0) % Lymphocytes (Manual) 20 L (24-44) % Monocytes (Manual) 4 (0.0-12.0) % Eosinophils (Manual) 2 (0.00-3.0) % Platelet Estimate NORMAL (NORMAL) RBC Morphology NORMAL Thyroid Peroxidase Ab 0.4 (0.0-9.0) IU/mL C. difficile Screen NEGATIVE (NEGATIVE) C.difficile [id number] PRESUMPTIVE NEGATIVE (NEGATIVE) Radiology Exams: Radiology Procedures Category Date Time Status ABDOMEN AND PELVIS W CONTRAST [CT] Stat Exams 12/05/18 12:51 Ordered Assessment/Plan (1) Positive blood culture Current Visit: Yes Status: Resolved Code(s): R78.81 - BACTEREMIA (2) Abdominal pain Current Visit: No Status: Acute Assessment & Plan: CT abd/pelvis with oral and IV contrast MARILEE Code(s): R10.9 - UNSPECIFIED ABDOMINAL PAIN (3) Nausea Current Visit: Yes Status: Acute Assessment & Plan: GERD untreated since hosp was to be given IV but due to global shortening restart oral Pantoprazole 40 bid. Code(s): R11.0 - NAUSEA (4) Cephalalgia Current Visit: Yes Status: Acute Assessment & Plan: sinusitis and DNS do CT sinus and head. Code(s): R51 - HEADACHE
[2018-12-05] MEDS: Protonix 40MG Tablet PO SCH ×2 (15:36→21:12)
[2018-12-05 16:07] LABS: Lactic Acid 3.2 (0.4-2.0)
--- NOTE | 2018-12-05 16:16 | XRAY ---
Indication: Headache behind left eye. Multiple contiguous axial images obtained through the head prior to and following 80 cc of Isovue-370 contrast. Comparison: July 24, 2010. Ventriculosulcal pattern appears symmetric. Again no acute intracranial hemorrhage, abnormal extra-axial fluid collection, or mass effect. Younger-white matter differentiation preserved. Following contrast, there is no abnormal enhancing intra or extra-axial mass. Fourth ventricle is midline without hydrocephalus. Bony calvarium intact. Orbits are bilaterally symmetric. Visualized paranasal sinuses and master cells are clear. Impression: Negative CT head with and without contrast exam. CTDI 69.79
[2018-12-05 16:17] LABS: ALBUMIN 3.6 g/dL (3.5-5.0); ALKALINE PHOSPHATASE 88 U/L (38-126); ANION GAP 14.7 MEQ/L (5-15); BLOOD UREA NITROGEN 11 mg/dL (7-17); CHLORIDE 102 mmol/L (98-107); Carbon Dioxide 25 mmol/L (22-30); Creatinine 1 0.58 mg/dL (0.52-1.04); Glucose 202 mg/dL (74-106); Potassium 3.6 mmol/L (3.5-5.1); SGOT/AST 36 U/L (14-36); SGPT/ALT 29 U/L (0-35); SODIUM 138 mmol/L (137-145); Total Protein 6.2 g/dL (6.3-8.2)
--- NOTE | 2018-12-05 16:17 | XRAY ---
Indication: Headache behind left eye. Multiple contiguous axial images obtained through the paranasal sinuses. Sagittal and coronal reformatted images obtained. Comparison: None. There are a few dental amalgams producing beam artifact. Paranasal sinuses, ostiomeatal units, and nasal passages are clear. Incidental right middle turbinate radha bullosa and mild nasal septal deviation to the left. Visualized osseous structures are intact without suspicious bony lesions. Remaining visualized noncontrasted soft tissues including orbits are unremarkable. CT head reported separately. Impression: Right middle turbinate radha bullosa and mild nasal septal deviation to the left. Remaining CT sinuses negative. CTDI 55.75
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
[2018-12-05] MEDS ORDERED: Sodium Chloride 0.9% 10 ML FLUSH Syringe IV PRN (17:26)
[2018-12-05] MEDS ORDERED: SODIUM CHLORIDE 0.45% W/ 20 mEq KCL 1,000 ML IV SCH (18:45)
[2018-12-05] MEDS ORDERED: SODIUM CHLORIDE 0.45% W/ 20 mEq KCL 1,000 ML IV ONE (18:47)
[2018-12-05] MEDS: PATIENT OWN MEDICATION PO SCH (21:13)
[2018-12-06] MEDS: FLAGYL 500 MG IVPB 500 MG/100 ML BAG IV SCH ×3 (05:27→18:16)
[2018-12-06 06:02] LABS: Hematocrit 40.4 % (35-47); Hemoglobin 13.1 gm/dl (12.0-16.0); Mean Cell Volume 90.8 fl (78-100); Mean Corpuscular Hemoglobin 29.4 pg (26-32); Mean Corpuscular Hgb Concent. 32.4 g/dl (32-36); Mean Platelet Volume 10.7 fl (6-9.5); Platelet Count 265 K/mm3 (150-450); Red Blood Count 4.45 M/mm3 (4.1-5.4); Red Cell Distribution Width 14.6 % (11.5-14.0); White Blood Count 8.1 K/mm3 (4.0-10.5)
[2018-12-06 07:50] LABS: BAND 1 % (0.0-2.0); Eosinophil 2 % (0.00-3.0); Lymphocytes 20 % (24-44); Monocyte 3 % (0.0-12.0); Neutrophils 74 % (36.0-66.0); Platelet Estimate NORMAL (NORMAL); Total Cells Counted 100; Toxic Granulation 1+
[2018-12-06] MEDS: Levofloxacin 500MG/100ML D5W 500 MG/100 ML BAG IV SCH (10:05)
[2018-12-06] MEDS: Protonix 40MG Tablet PO SCH (10:11)
[2018-12-06] MEDS: LYRICA 150MG PO SCH (10:11)
[2018-12-06] MEDS: Sodium Chloride 0.9% 10 ML FLUSH Syringe IV SCH ×2 (15:13)
[2018-12-06 17:17] VITALS: O2SAT 94
[2018-12-06 19:53] VITALS: BP 114/70; PULSE 86
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
== END 2018-12-06 20:40 | disposition home or self-care (01) | DRG 392 ==
LOC: ED 11:14 → MED SURG 14:45 → OBSVTOIN 12-05 12:30
PROVIDERS: ADMIT Family Medicine; ATTEND Family Medicine
DX: R10.9 Unspecified abdominal pain (principal); K57.92 Diverticulitis of intestine, part unspecified, without perforation or abscess without bleeding; K50.90 Crohn's disease, unspecified, without complications; R78.81 Bacteremia; R11.2 Nausea with vomiting, unspecified; K52.9 Noninfective gastroenteritis and colitis, unspecified; E11.9 Type 2 diabetes mellitus without complications; I10 Essential (primary) hypertension; M06.9 Rheumatoid arthritis, unspecified; M54.5 Low back pain; K21.9 Gastro-esophageal reflux disease without esophagitis; G47.30 Sleep apnea, unspecified; R51 Headache; J44.9 Chronic obstructive pulmonary disease, unspecified; E05.90 Thyrotoxicosis, unspecified without thyrotoxic crisis or storm; Z79.899 Other long term (current) drug therapy; Z79.4 Long term (current) use of insulin
CPT/HCPCS: 36000; 36415; 70470; 70486; 74176; 74178; 80053; 81001; 82150; 82607; 82746; 82962; 83036; 83605; 83690; 83735; 84443; 85025; 86376; 87040; 87086; 87493; 94760; 94762; 96360; 96361; 96365; 96374; 96375; 96376; 99285; G0378; J1170; J1956; J2405; J2550; J3370; J3420; Q0162; A9270-GY

== ENCOUNTER 2019-03-29 15:34 | Emergency (ER) | payer MEDICARE, OTHER ==
[2019-03-29] MEDS ORDERED: Sodium Chloride 0.9% 1000 ML 1,000 ML IV STA (15:40)
--- NOTE | 2019-03-29 15:41 | ERPHSYRPT ---
- History of Present Illness Time Seen by Provider: 03/29/19 15:37 Source: patient, family, old records Exam Limitations: no limitations Physician History: PT IS A 58 Y/O WOMAN C/O "I THINK I HAVE DIVERTICULITIS." SHE C/O RIGHT SIDED ABD DISCOMFORT X 2 DAYS THAT "FEELS LIKE SOMEONE IS TWISTING MY INTESTINES." IT IS A 6/10 AND NON RADIATING. NO RELIEVING OR EXACERBATING FACTORS. NO MELENA OR HEMATOCHEZIA. 1 EPISODE OF LOOSE STOOLS + CONSTIPATION. NO FEVER/CHILLS BUT HOT AND COLD SWEATS. NO CP/SOB/COUGH/CONGESTION. NO DYSURIA/HEMATURIA/VAG BLEED OR DC. SIMILAR EPISODES IN THE PAST "THAT WAS DIVERTICULITIS IT IS ALWAYS ON THAT SIDE." REPORTS + NAUSEA NO VOMITING. TOOK OF INSULIN PUMP DUE TO ANOREXIA. 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 HTN CAD Allergies/Adverse Reactions: codeine Allergy (Intermediate, Verified 11/12/17 21:17) morphine Allergy (Intermediate, Verified 11/12/17 21:17) povidone-iodine [From Betadine] Allergy (Intermediate, Verified 11/12/17 21:17) soap [From Betadine] Allergy (Intermediate, Verified 11/12/17 21:17) adhesive Adverse Reaction (Verified 11/12/17 21:17) Home Medications: Leflunomide [Arava] 20 mg PO HS 09/22/15 [History] Dulaglutide [Trulicity] 0.75 mg SQ WEEKLY 02/11/17 [History] Eslicarbazepine Acetate [Aptiom] 1,200 mg PO HS 11/12/17 [History] Insulin Lispro [Humalog] 1 unit SQ DAILY 11/12/17 [History] Fentanyl 25Mcg Patch [Duragesic 25MCG Patch] 25 mcg TOP Q3D 12/01/18 [ History] Fluticasone/Vilanterol [Breo Ellipta 200-25 Mcg INH] 1 puff IH QHS 12/01/18 [ History] Hydroxychloroquine Sulfate [Plaquenil] 200 mg PO BID 12/01/18 [History] PANTOPRAZOLE 40 mg Tablet [Protonix 40MG Tablet] 40 mg PO QHS 12/01/18 [ History] Pregabalin [Lyrica 150Mg] 150 mg PO TID 03/29/19 [History] Hx Tetanus, Diphtheria Vaccination/Date Given: Yes Hx Influenza Vaccination/Date Given: No Hx Pneumococcal Vaccination/Date Given: Yes - Review of Systems Constitutional: No Symptoms, No Fever, No Chills, No Fatigue, No Lethargy, No Malaise, No Night Sweats, No Weakness, No Weight Loss Eyes: No Symptoms, No Discharge, No Eye Pain, No Eye Redness, No Itchy, No Photophobia, No Tearing, No Vision Changes, No Double Vision, No Foreign Body Sensation Ears, Nose, & Throat: No Symptoms, No Ear Pain, No Ear Discharge, No Hearing Changes, No Tinnitus, No Nose Congestion, No Nose Discharge, No Epistaxis, No Mouth Pain, No Mouth Swelling, No Throat Pain, No Throat Swelling, No Hoarse, No Painful Swallowing, No Stridor Respiratory: No Symptoms, No Cough, No Cyanosis, No Dyspnea, No Dyspnea on Exertion (LINDSEY), No Stridor, No Wheezing Cardiac: No Symptoms, No Chest Pain, No Edema, No Palpitations, No Syncope, No Orthopnea Abdominal/Gastrointestinal: No Symptoms, Abdominal Pain, Nausea, Constipation, No Vomiting, No Diarrhea, No Hematemesis, No Hematochezia, No Melena, No Dysphagia, No Appetite Changes Genitourinary Symptoms: No Symptoms, No Dysuria, No Frequency, No Hematuria, No Hesitancy, No Incontinence, No Urgency, No Urinary Retention, No Flank Pain, No Menorrhagia, No , No Vaginal Bleeding, No Vaginal Discharge Musculoskeletal: No Symptoms, No Arthralgias, No Back Pain, No Neck Pain, No Deformity, No Fall, No Injury, No Joint Redness, No Joint Pain, No Joint Swelling, No Myalgias Skin: No Symptoms, No Cellulitis, No Decubiti, No Induration, No Pruritis, No Rash, No Skin Lesions, No Dryness Neurological: No Symptoms, No Dizziness, No Focal Weakness, No Gait Changes, No Headache, No Irritability, No Lethargy, No Paralysis, No Parasthesia, No Seizure , No Sensory Changes, No Speech Changes, No Tics, No Tremors, No Vertigo Psychological: No Symptoms, No Alcohol Abuse, No Drug Abuse, No Anxiety, No Depression, No Suicidal Ideations, No Homicidal Ideations, No Emotional Lability , No Hallucinations, No Memory Loss, No Mood Changes Endocrine: No Symptoms, No Polyuria, No Polydipsia, No Hair Changes, No Cold Intolerance, No Excessive Sweating, No Goiter Hematologic/Lymphatic: No Symptoms, No Anemia, No Blood Clots, No Easy Bleeding , No Gum Bleeding, No Easy Bruising, No Adenopathy Immunological/Allergic: No Symptoms All Other Systems: Reviewed and Negative - Past Medical History Pertinent Past Medical History: Yes Neurological History: Migraines, Stroke ENT History: Cataracts Cardiac History: Congestive Heart Failure, Coronary Artery Disease, Other Respiratory History: Asthma, COPD, Pneumonia Endocrine Medical History: Diabetes Type II Musculoskeletal History: Fibromyalgia, Other GI Medical History: Crohns Disease, Diverticulitis, Diverticulosis History: No Pertinent History Psycho-Social History: No Pertinent History Female Reproductive Disorders: No Pertinent History Other Medical History: Tachycardia. Mixed connective tissue disease. RA/lupus - Past Surgical History Past Surgical History: Yes Neuro Surgical History: No Pertinent History Cardiac: Cardiac Catheterization Respiratory: No Pertinent History Gastrointestinal: Appendectomy, Cholecystectomy, Other Genitourinary: No Pertinent History Musculoskeletal: Joint Replacement, Orthopedic Surgery, Other Female Surgical History: Hysterectomy, Lumpectomy Other Surgical History: bev fundoplasty, knee scopes. rods in spine. SI fused. left breast lumpectomy, right total knee, implanted nerve stimulator - Social History Smoking Status: Never smoker Exposure to second hand smoke: No Alcohol Use: Socially Drug Use: none Patient Lives Alone: No Significant Family History: no pertinent family hx - Nursing Vital Signs Nursing Vital Signs: Initial Vital Signs Temperature 97.6 F 03/29/19 17:01 Pulse Rate 104 H 03/29/19 17:01 Respiratory Rate 20 03/29/19 17:01 Blood Pressure 160/96 03/29/19 17:01 O2 Sat by Pulse Oximetry 97 03/29/19 17:01 Pain Scale Pain Intensity 10 - Physical Exam General Appearance: no apparent distress, alert, other (APPEARS CHRONICALLY ILL) Eye Exam: PERRL/EOMI, eyes nml inspection, other (fundi normal jerson), No scleral icterus, No pale conjunctivae, No photophobia, No EOM palsy/anisocoria Ears, Nose, Throat Exam: normal ENT inspection, TMs normal, pharynx normal, dry mucous membranes, TM abnormal (L), other (uvula midline, floor of mouth soft), No moist mucous membranes, No TM abnormal (R), No pharyngeal erythema, No tonsillar exudate Neck Exam: normal inspection, non-tender, supple, full range of motion, No meningismus, No mass, No Brudzinski, No Kernig's, No carotid bruit, No JVD, No limited range of motion, No lymphadenopathy, No midline tenderness, No thyromegaly Respiratory Exam: normal breath sounds, lungs clear, airway intact, No chest tenderness, No respiratory distress, No diminished breath sounds, No accessory muscle use, No prolonged expirations, No crackles/rales, No rhonchi, No wheezing , No stridor, No pleural rub Cardiovascular Exam: regular rate/rhythm, normal heart sounds, normal peripheral pulses, capillary refill <2 sec, No murmur, No friction rub, No gallop, No tachycardia, No bradycardia, No irregular, No capillary refill 2-3 sec, No capillary refill >3 sec, No edema, No pulse deficit Gastrointestinal/Abdomen Exam: soft, normal bowel sounds, tenderness (RUQ RLQ NO GUARD OR REBOUND BS X 4), No distention, No mass, No guarding, No ecchymosis , No pulsatile mass, No rebound, No hernia, No hepatomegaly, No organomegaly, No splenomegaly, No bruit Pelvic Exam: normal external exam Rectal Exam: deferred Back Exam: normal inspection, normal range of motion, other (neg slr jerson, no sacral anesthesia, dtr 2/4 jerson patella), No CVA tenderness, No vertebral tenderness, No rash, No decreased range of motion, No muscle spasm, No point tenderness Extremity Exam: normal inspection, normal range of motion, pelvis stable, other (CHRONIC LE EXTREMITY SKIN CHANGES), No amputations, No contusions, No calf tenderness, No deformities, No lacerations, No parasthesia, No paralysis, No inflammation, No joint swelling, No limited range of motion, No pedal edema, No swelling, No tenderness Neurologic Exam: alert, oriented x 3, cooperative, call center assistant II-XII nml as tested, normal mood/affect, nml cerebellar function, nml station & gait, sensation nml, No motor deficits, No sensory deficit, No disoriented, No confusion, No agitation, No uncooperative, No intoxicated appearance, No depressed mood/affect , No motor weakness, No facial droop, No slurred speech, No aphasia, No dysarthria, No abnormal gait, No abnormal cerebellar tests, No abnormal call center assistant II- XII, No EOM palsy Skin Exam: normal color, warm, dry, No rash, No petechiae, No jaundice, No abrasion, No cyanosis, No diaphoresis, No decubitus, No embolic lesions, No ecchymosis, No jaundice, No laceration, No mottled, No pale Lymphatic Exam: No adenopathy SpO2 Interpretation: normal O2 Delivery: Room Air - Course Nursing assessment & vital signs reviewed: Yes EKG Interpreted by Me: RATE, Sinus Rhythm, NORMAL AXIS, NORMAL INTERVALS, NORMAL QRS, NORMAL ST-T Ordered Tests: Active Orders 24 hr Category Date Time Status EKG-ER Only STAT Care 03/29/19 15:40 Active IV Insertion STAT Care 03/29/19 15:40 Active ABDOMEN AND PELVIS W CONTRAST [CT] Stat Exams 03/29/19 15:48 Completed CBC W DIFF Stat Lab 03/29/19 13:55 Completed CMP Stat Lab 03/29/19 13:55 Completed LIPASE Stat Lab 03/29/19 13:55 Completed Lactic Acid Stat Lab 03/29/19 15:50 Completed TROPONIN Q3H Lab 03/29/19 13:55 Completed TROPONIN Q3H Lab 03/29/19 13:55 Received TROPONIN Q3H Lab 03/29/19 13:55 Received TROPONIN Q3H Lab 03/30/19 00:45 Ordered TROPONIN Q3H Lab 03/30/19 03:45 Ordered UA W/RFX UR CULTURE Stat Lab 03/29/19 16:08 Completed Medication Summary Discontinued Medications Generic Name Dose Route Start Last Admin Trade Name Freq PRN Reason Stop Dose Admin Sodium Chloride 1,000 mls @ 999 mls/hr 03/29/19 15:40 03/29/19 15:53 Sodium Chloride 0.9% 1000 Ml IV 03/29/19 16:40 999 mls/hr .Q1H1M STA Administration Sodium Chloride Confirm 03/29/19 15:52 Sodium Chloride 0.9% 1000 Ml Administered 03/29/19 15:53 Dose 1,000 mls @ ud .ROUTE .STK-MED ONE Ketorolac Tromethamine 15 mg 03/29/19 17:04 03/29/19 17:21 Toradol 30 Mg Injection IV 03/29/19 17:05 15 mg STAT ONE Administration Ketorolac Tromethamine Confirm 03/29/19 17:19 Toradol 30 Mg Injection Administered 03/29/19 17:20 Dose 30 mg .ROUTE .STK-MED ONE Ondansetron HCl 4 mg 03/29/19 17:04 03/29/19 17:23 Zofran 4 Mg/2 Ml Vial IV 03/29/19 17:05 4 mg STAT ONE Administration Ondansetron HCl Confirm 03/29/19 17:19 Zofran 4 Mg/2 Ml Vial Administered 03/29/19 17:20 Dose 4 mg .ROUTE .STK-MED ONE Lab/Rad Data: Laboratory Result Diagrams 03/29/19 13:55 03/29/19 13:55 Laboratory Results 03/29/19 03/29/19 03/29/19 Range/Units 16:08 15:50 13:55 WBC (4.0-10.5) K/mm3 RBC (4.1-5.4) M/mm3 Hgb (12.0-16.0) gm/dl Hct (35-47) % MCV (78-100) fl MCH (26-32) pg MCHC (32-36) g/dl RDW (11.5-14.0) % Plt Count (150-450) K/mm3 MPV (6-9.5) fl Gran % (36.0-66.0) % Eos # (Auto) (0-0.5) Absolute Lymphs (auto) (1.0-4.6) Absolute Monos (auto) (0.0-1.3) Lymphocytes % (24.0-44.0) % Monocytes % (0.0-12.0) % Eosinophils % (0.00-5.0) % Basophils % (0.0-0.4) % Absolute Granulocytes (1.4-6.9) Basophils # (0-0.4) Sodium (137-145) mmol/L Potassium (3.5-5.1) mmol/L Chloride (98-107) mmol/L Carbon Dioxide (22-30) mmol/L Anion Gap (5-15) MEQ/L BUN (7-17) mg/dL Creatinine (0.52-1.04) mg/dL Estimated GFR ML/MIN Glucose (74-106) mg/dL Lactic Acid 1.1 (0.4-2.0) Calcium (8.4-10.2) mg/dL Total Bilirubin (0.2-1.3) mg/dL AST (14-36) U/L ALT (0-35) U/L Alkaline Phosphatase (38-126) U/L Troponin I < 0.012 (0.000-0.034) ng/mL Serum Total Protein (6.3-8.2) g/dL Albumin (3.5-5.0) g/dL Lipase (23-300) U/L Urine Color YELLOW (YELLOW) Urine Appearance CLEAR (CLEAR) Urine pH 8.0 (5-6) Ur Specific Coello 1.008 (1.005-1.025) Urine Protein NEGATIVE (Negative) Urine Ketones SMALL (NEGATIVE) Urine Blood NEGATIVE (0-5) Pawel/ul Urine Nitrite NEGATIVE (NEGATIVE) Urine Bilirubin NEGATIVE (NEGATIVE) Urine Urobilinogen NEGATIVE (0-1) mg/dL Ur Leukocyte Esterase NEGATIVE (NEGATIVE) Urine WBC (Auto) 0-2 (0-5) /HPF Urine RBC (Auto) NONE (0-2) /HPF U Epithel Cells (Auto) RARE (FEW) /HPF Urine Bacteria (Auto) NONE (NEGATIVE) /HPF Urine Culture Reflexed NO (NO) Urine Glucose 50 (NEGATIVE) mg/dL 03/29/19 03/29/19 Range/Units 13:55 13:55 WBC 12.0 H (4.0-10.5) K/mm3 RBC 5.03 (4.1-5.4) M/mm3 Hgb 15.1 (12.0-16.0) gm/dl Hct 45.6 (35-47) % MCV 90.7 (78-100) fl MCH 30.0 (26-32) pg MCHC 33.1 (32-36) g/dl RDW 14.2 H (11.5-14.0) % Plt Count 284 (150-450) K/mm3 MPV 11.3 H (6-9.5) fl Gran % 88.7 H (36.0-66.0) % Eos # (Auto) 0.02 (0-0.5) Absolute Lymphs (auto) 1.06 (1.0-4.6) Absolute Monos (auto) 0.25 (0.0-1.3) Lymphocytes % 8.8 L (24.0-44.0) % Monocytes % 2.1 (0.0-12.0) % Eosinophils % 0.2 (0.00-5.0) % Basophils % 0.2 (0.0-0.4) % Absolute Granulocytes 10.67 H (1.4-6.9) Basophils # 0.03 (0-0.4) Sodium 144 (137-145) mmol/L Potassium 4.4 (3.5-5.1) mmol/L Chloride 107 (98-107) mmol/L Carbon Dioxide 25 (22-30) mmol/L Anion Gap 16.0 H (5-15) MEQ/L BUN 10 (7-17) mg/dL Creatinine 0.42 L (0.52-1.04) mg/dL Estimated GFR > 60.0 ML/MIN Glucose 145 H (74-106) mg/dL Lactic Acid (0.4-2.0) Calcium 9.8 (8.4-10.2) mg/dL Total Bilirubin 0.50 (0.2-1.3) mg/dL AST 41 H (14-36) U/L ALT 29 (0-35) U/L Alkaline Phosphatase 134 H (38-126) U/L Troponin I (0.000-0.034) ng/mL Serum Total Protein 7.0 (6.3-8.2) g/dL Albumin 4.2 (3.5-5.0) g/dL Lipase 62 (23-300) U/L Urine Color (YELLOW) Urine Appearance (CLEAR) Urine pH (5-6) Ur Specific Coello (1.005-1.025) Urine Protein (Negative) Urine Ketones (NEGATIVE) Urine Blood (0-5) Pawel/ul Urine Nitrite (NEGATIVE) Urine Bilirubin (NEGATIVE) Urine Urobilinogen (0-1) mg/dL Ur Leukocyte Esterase (NEGATIVE) Urine WBC (Auto) (0-5) /HPF Urine RBC (Auto) (0-2) /HPF U Epithel Cells (Auto) (FEW) /HPF Urine Bacteria (Auto) (NEGATIVE) /HPF Urine Culture Reflexed (NO) Urine Glucose (NEGATIVE) mg/dL - Progress Progress: improved Progress Note: 03/29/19 17:12 CT A/P READ BY RAD NEG LABS GROSSLY UNREMARKABLE UA NEG S/ MILD RUQ/RLQ TTP FINDINGS REVIEWED WITH PT WILL TREAT WITH TORADOL AND ZOFRAN, HYDRATE SHE WOULD LIKE ME TO SPEAK WITH DR. PAL. PLAN DC WITH FUP ?EARLY DIVERTICULITIS ? MILD INFLAMMATION OF BOWEL ON CT? 03/29/19 17:53 DR. PAL NOT AVAIL OFFERED ADMISSION PT DECLINES TOLERATING PO FLUIDS WOULD LIKE TO DC HER RIDE IS HERE. PT IS ANXIOUS. Counseled pt/family regarding: drug and/or alcohol abuse, lab results, diagnosis , need for follow-up, rad results, smoking cessation - Departure Departure Disposition: Home Clinical Impression: Abdominal pain Condition: Good Critical Care Time: No Referrals: PAULETTE SALAZAR [Primary Care Provider] - Instructions: Acute Abdomen (Belly Pain) Additional Instructions: TO ER IF WORSENING ABDOMINAL PAIN, FEVER OVER 102, INTRACTABLE VOMITING YOUR LABS AND IMAGING WERE UNREMARKABLE PLEASE USE TYLENOL FOR DISCOMFORT PLEASE DRINK PLENTY OF FLUIDS PLEASE FOLLOW UP WITH YOUR DOCTOR IN 2-3 DAYS FOR RE-EVALUATION AND DEFINITIVE CARE
[2019-03-29] MEDS ORDERED: Sodium Chloride 0.9% 1000 ML 1,000 ML ONE (15:52)
[2019-03-29 16:16] LABS: Absolute Neutrophil Ct (ANC) 10.67 (1.4-6.9); BASOPHIL % 0.2 % (0.0-0.4); Basophil (Absolute #) 0.03 (0-0.4); Eosinophil % 0.2 % (0.00-5.0); Eosinophil (Absolute #) 0.02 (0-0.5); Hematocrit 45.6 % (35-47); Hemoglobin 15.1 gm/dl (12.0-16.0); Lymphocyte (Absolute #) 1.06 (1.0-4.6); Lymphocytes % 8.8 % (24.0-44.0); Mean Cell Volume 90.7 fl (78-100); Mean Corpuscular Hgb Concent. 33.1 g/dl (32-36); Mean Platelet Volume 11.3 fl (6-9.5); Monocyte (Absolute #) 0.25 (0.0-1.3); Monocytes % 2.1 % (0.0-12.0); Neutrophil % 88.7 % (36.0-66.0); Platelet Count 284 K/mm3 (150-450); Red Blood Count 5.03 M/mm3 (4.1-5.4); Red Cell Distribution Width 14.2 % (11.5-14.0)
[2019-03-29 16:29] LABS: Appearance CLEAR (CLEAR); Bilirubin NEGATIVE (NEGATIVE); Blood NEGATIVE Ery/ul (0-5); Epithelial Cells RARE /HPF (FEW); Glucose 50 mg/dL (NEGATIVE); Ketones SMALL (NEGATIVE); Leukocyte Esterase NEGATIVE (NEGATIVE); Nitrite NEGATIVE (NEGATIVE); Protein,Urine Dip NEGATIVE (Negative); Specific Gravity 1.008 (1.005-1.025); Urobilinogen NEGATIVE mg/dL (0-1); WBC 0-2 /HPF (0-5)
[2019-03-29 16:30] LABS: ALBUMIN 4.2 g/dL (3.5-5.0); ALKALINE PHOSPHATASE 134 U/L (38-126); BLOOD UREA NITROGEN 10 mg/dL (7-17); CHLORIDE 107 mmol/L (98-107); Calcium 9.8 mg/dL (8.4-10.2); Carbon Dioxide 25 mmol/L (22-30); Creatinine 1 0.42 mg/dL (0.52-1.04); Glucose 145 mg/dL (74-106); LIPASE 62 U/L (23-300); Potassium 4.4 mmol/L (3.5-5.1); SGOT/AST 41 U/L (14-36); SGPT/ALT 29 U/L (0-35); SODIUM 144 mmol/L (137-145)
[2019-03-29 17:02] VITALS: BP 160/96; PULSE 104; O2SAT 97
--- NOTE | 2019-03-29 17:02 | XRAY ---
Indication: Abdomen pain and nausea. Multiple contiguous axial images obtained through the abdomen and pelvis using 80 cc Isovue-370 contrast only. Comparison: December 01 and December 05, 2018. Lung bases remain clear. Heart is not enlarged. Stable small hiatal hernia. Again lumbosacral fusion hardware, right SI orthopedic hardware, and left lower back stimulator device with leads produces beam artifact. Noncontrasted stomach and bowel loops appear nonobstructed. Again scattered colonic diverticulosis greatest in the sigmoid colon. No evidence for diverticulitis. Again previous reported appendectomy, cholecystectomy, and hysterectomy. No free fluid/air. Remaining liver, pancreas, spleen, adrenal glands, kidneys, ureters, and bladder appear unremarkable. No AAA or pathological retroperitoneal lymphadenopathy. Osseous structures again demonstrates mild/moderate degenerative changes throughout the thoracolumbar spine with stable superior L2 concave deformity. L3 demonstrates new superior and inferior concave deformities with less than 50% height loss. Impression: 1. Again scattered colonic diverticulosis. No acute diverticulitis. 2. Stable small hiatal hernia. 3. No new or acute intra-abdominal/pelvic abnormalities. 4. Again chronic bony findings. New finding L3 superior/inferior endplate fractures of uncertain chronicity. CTDI 27.95
[2019-03-29] MEDS ORDERED: Zofran 4 MG/2 ML VIAL IV ONE (17:04)
[2019-03-29] MEDS ORDERED: TORAdol 30 mg Injection IV ONE (17:04)
[2019-03-29] MEDS ORDERED: Zofran 4 MG/2 ML VIAL ONE (17:19)
[2019-03-29] MEDS ORDERED: TORAdol 30 mg Injection ONE (17:19)
== END 2019-03-29 18:03 | disposition home or self-care (01) ==
LOC: ED 15:34
DX: R10.9 Unspecified abdominal pain (principal); I50.9 Heart failure, unspecified; I25.10 Atherosclerotic heart disease of native coronary artery without angina pectoris; Z79.899 Other long term (current) drug therapy; J44.9 Chronic obstructive pulmonary disease, unspecified; J45.909 Unspecified asthma, uncomplicated; E11.9 Type 2 diabetes mellitus without complications; M79.7 Fibromyalgia
CPT/HCPCS: 36000; 36415; 74177; 80053; 81001; 83605; 83690; 84484; 85025; 86140; 93005; 96360; 96374; 96375; 99284; J1885; J2405

== ENCOUNTER → 2022-02-24 | Day surgery (SDC) | payer OTHER, MEDICARE ==
[~2022-02-24] MED LIST: DIPRIVAN 200 MG/20 ML IV ONE; Depo-Medrol 40 MG/ML IM ONE; LIDOCAINE HCL 2% 100 MG/5 ML IJ ONE; Lactated Ringers 1,000 ML IV ONE; Versed 2 MG/2 ML Injection ONE
--- NOTE | 2022-02-24 11:55 | XRAY ---
Indication: Bilateral L4-S1 MBB. Intraoperative fluoroscopy provided for 31 seconds. 2 digital spot images submitted for interpretation demonstrate posterior needle tips projecting over the expected left and right L4-S1 nerve roots. Correlate with intraoperative findings/report.
--- NOTE | 2022-02-24 12:02 | XRAY ---
31 seconds fluoroscopy time in surgery for bilateral L4-S1 MBB.
== END ==
LOC: SDC-PAIN 08:45
PROVIDERS: ATTEND Psychiatry & Neurology Pain Medicine
DX: M47.816 Spondylosis without myelopathy or radiculopathy, lumbar region (principal); E11.9 Type 2 diabetes mellitus without complications; Z79.899 Other long term (current) drug therapy
CPT/HCPCS: 64493; 64494; 72020; 77002; 82947; J1030; J2250; J2704

== ENCOUNTER 2022-06-09 13:12 | Day surgery (SDC) | payer BC, MEDICARE ==
[2022-06-09] MEDS ORDERED: BUPIVACAINE 0.5% VIAL IJ ONE (13:13)
[2022-06-09] MEDS ORDERED: LIDOCAINE HCL 1% 50 MG/5 ML VL PF IJ ONE (13:13)
[2022-06-09] MEDS ORDERED: Depo-Medrol 40 MG/ML IM ONE (13:13)
[2022-06-09] MEDS ORDERED: DIPRIVAN 200 MG/20 ML IV ONE (14:28)
--- NOTE | 2022-06-09 14:59 | XRAY ---
Indication: Right L4-S1 RFA. Intraoperative fluoroscopy provided for 48 seconds. 3 digital spot image submitted for interpretation demonstrates posterior needle tips projecting over the expected right L4-S1 nerve roots. Correlate with intraoperative findings/report. Incidental L5-S1 posterior fusion hardware and 2 right SI joint fusion screws.
--- NOTE | 2022-06-09 15:15 | XRAY ---
48 seconds of fluoroscopy was used in surgery for a right L4-S1 RFA.
[2022-06-09] MEDS ORDERED: Lactated Ringers 1,000 ML IV ONE (15:18)
== END 2022-06-09 15:03 | disposition home or self-care (01) ==
LOC: SDC-PAIN 13:12
PROVIDERS: ATTEND Psychiatry & Neurology Pain Medicine
DX: M47.816 Spondylosis without myelopathy or radiculopathy, lumbar region (principal); E11.9 Type 2 diabetes mellitus without complications; Z79.899 Other long term (current) drug therapy
CPT/HCPCS: 64635; 64636; 72100; 77002; 82947; J1030; J2001; J2704

== ENCOUNTER 2022-06-23 13:18 | Day surgery (SDC) | payer BC, OTHER, MEDICARE ==
[2022-06-23] MEDS ORDERED: BUPIVACAINE 0.5% VIAL IJ ONE (13:19)
[2022-06-23] MEDS ORDERED: LIDOCAINE HCL 1% 50 MG/5 ML VL PF IJ ONE (13:19)
[2022-06-23] MEDS ORDERED: Depo-Medrol 40 MG/ML IM ONE (13:19)
[2022-06-23] MEDS ORDERED: DIPRIVAN 200 MG/20 ML IV ONE (15:37)
--- NOTE | 2022-06-23 16:51 | XRAY ---
Indication: Left L4-S1 RFA. Intraoperative fluoroscopy provided for 1 minutes 2 seconds. 5 digital spot image submitted for interpretation demonstrates posterior needle tips projecting over the expected left L4-S1 nerve roots. Correlate with intraoperative findings/report. Incidental bilateral L5-S1 posterior fusion hardware into right SI joint fusion screws.
[2022-06-23] MEDS ORDERED: Lactated Ringers 1,000 ML IV ONE (17:06)
--- NOTE | 2022-06-23 17:33 | XRAY ---
1 minute and 2 seconds of fluoroscopy was used in surgery for a left L4-S1 RFA.
== END 2022-06-23 16:20 | disposition home or self-care (01) ==
LOC: SDC-PAIN 13:18
PROVIDERS: ATTEND Psychiatry & Neurology Pain Medicine
DX: M47.816 Spondylosis without myelopathy or radiculopathy, lumbar region (principal); E11.9 Type 2 diabetes mellitus without complications; Z79.899 Other long term (current) drug therapy
CPT/HCPCS: 64635; 64636; 72100; 77002; 82947; J1030; J2001; J2704

== ENCOUNTER 2022-08-04 09:57 | Day surgery (SDC) | payer BC, OTHER, MEDICARE ==
[2022-08-04] MEDS ORDERED: Depo-Medrol 40 MG/ML IM ONE (09:58)
[2022-08-04] MEDS ORDERED: BUPIVACAINE 0.5% VIAL IJ ONE (09:58)
[2022-08-04] MEDS ORDERED: DIPRIVAN 200 MG/20 ML IV ONE (12:11)
[2022-08-04] MEDS ORDERED: BENADRYL 50 MG/ML ONE (12:15)
[2022-08-04] MEDS ORDERED: Lactated Ringers 1,000 ML IV ONE (13:30)
--- NOTE | 2022-08-04 13:48 | XRAY ---
Indication: Right SI joint and right hip injection Intraoperative fluoroscopy provided for 22 seconds. 3 digital spot images obtained prone submitted for interpretation demonstrates posterior needle tip projecting over right SI joint. Second needle tip lateral to right femur neck with small amount of contrast injected for needle tip placement. Correlate with intraoperative findings/report. Incidental incompletely visualized 2 right SI joint transverse fixation screws.
--- NOTE | 2022-08-04 13:50 | XRAY ---
22 seconds of fluoroscopy was used in surgery for a right sacroiliac joint and intra-articular hip injection.
== END 2022-08-04 12:38 | disposition home or self-care (01) ==
LOC: SDC-PAIN 09:57
PROVIDERS: ATTEND Psychiatry & Neurology Pain Medicine
DX: M47.816 Spondylosis without myelopathy or radiculopathy, lumbar region (principal); E11.9 Type 2 diabetes mellitus without complications; Z79.899 Other long term (current) drug therapy
CPT/HCPCS: 20610; 27096; 73501; 77002; 82947; J1030; J1200; J2704; Q9966; G0260

== ENCOUNTER 2022-12-29 12:32 | Day surgery (SDC) | payer OTHER, MEDICARE ==
[2022-12-29] MEDS ORDERED: BUPIVACAINE 0.5% VIAL IJ ONE (12:33)
[2022-12-29] MEDS ORDERED: Depo-Medrol 40 MG/ML IM ONE (12:33)
[2022-12-29] MEDS ORDERED: DIPRIVAN 200 MG/20 ML IV ONE (14:49)
[2022-12-29] MEDS ORDERED: Lactated Ringers 1,000 ML IV ONE (15:53)
--- NOTE | 2022-12-29 18:44 | XRAY ---
Indication: Right SI joint injection. Intraoperative fluoroscopy provided for 7 seconds. 2 digital spot image submitted for interpretation demonstrates posterior needle tip projecting over the expected right SI joint. Correlate with intraoperative findings/report. Incidental partially visualized 2 orthopedic screws traversing SI joint.
--- NOTE | 2022-12-29 18:56 | XRAY ---
7 seconds of fluoroscopy was used in surgery for a right sacroiliac joint injection.
== END 2022-12-29 15:15 | disposition home or self-care (01) ==
LOC: SDC-PAIN 12:32
PROVIDERS: ATTEND Psychiatry & Neurology Pain Medicine
DX: M46.1 Sacroiliitis, not elsewhere classified (principal); E11.9 Type 2 diabetes mellitus without complications; Z79.899 Other long term (current) drug therapy
CPT/HCPCS: 27096; 72170; 77002; 82947; J1030; J2704; G0260